=== PATIENT | female | born 1950 | race Caucasian/White ===

== ENCOUNTER 2016-12-12 23:44 | Inpatient (IN) ==
[2016-12-13] MEDS ORDERED: KETOROLAC 30 MG/1 ML VIAL IV STA (01:02)
[2016-12-13 01:08] LABS: Basophils % 0.2 % (0.0-0.8); Eosinophils # 0.3 10*3/uL (0.0-0.87); Eosinophils % 5.7 % (0.00-10.9); Hematocrit 43.8 VOL% (35.7-47.0); Hemoglobin 14.5 GM/DL (12.0-16.0); Immature Granulocytes % 0.3 %; Immature Granulocytes Absolute 0.02 #; Lymphocytes # 1.4 10*3/uL (1.4-4.0); Lymphocytes % 24.1 % (21.3-54.2); Mean Corpuscular HGB Conc 33.1 GM/DL (32-36); Mean Corpuscular Hemoglobin 29 PG (27-34); Mean Corpuscular Volume 88.1 FL (87-102); Monocytes # 0.6 10*3/uL (0.11-0.8); Monocytes % 10.7 % (1.7-12.7); Neutrophils # 3.4 10*3/uL (1.4-7.4); Platelet Count 158 T/CUMM (130-400); Red Blood Count 4.97 MC/CUMM (3.8-5.5); Red Cell Distribution Width 14.6 % (9.3-17.3); White Blood Count 5.8 T/CUMM (4-12)
[2016-12-13] MEDS ORDERED: KETOROLAC 30 MG/1 ML VIAL ONE (01:18)
--- NOTE | 2016-12-13 01:20 | Emergency Department Note ---
Arrival - Arrival Chief Complaint: Chest Pain Stated Complaint: chest pain sob ED Nursing Triage Note: patient c/o leg pain for 2 weeks, sharp left sided cp with nausea. has taken nitro x 3 with some relief. has had 2 heart caths within one month but unable to stent. see dr weathers, has f/u appt with dr stanford. Mode of Arrival: Wheelchair Time Seen by Provider: 12/13/16 00:26 - History of Present Illness HPI Narrative: This is a 66-year-old female with type 2 diabetes and diabetic peripheral neuropathy, coronary artery disease status post coronary artery bypass graft surgery and recent cardiac catheterization within the past few weeks where dosimetrist was unable to place a stent who has been discharged on medical management who presents with intermittent chest pain for which he took 3 nitroglycerin tablets today and which prompted her to come to the emergency department to be sure that she is not had a myocardial infarction. In addition she is complaining of pain in her feet from her diabetic peripheral neuropathy. There is no shortness of breath diaphoresis nausea or vomiting. Allergies/Adverse Reactions: Allergies Allergy/AdvReac Type Severity Reaction Status Date / Time codeine Allergy Severe ITCHING Verified 11/20/16 10:57 Iodinated Contrast Media - Allergy Severe ITCHING Verified 11/20/16 10:57 Oral and [Iodinated Contrast Media - IV Dye] morphine Allergy Severe ITCHING Verified 11/20/16 10:57 Home Medications: Home Medications Medication Instructions Recorded Confirmed Type ALPRAZolam [Alprazolam] 0.5 mg PO BID 06/20/15 12/12/16 History Atorvastatin [Lipitor] 40 mg PO DAILY 06/20/15 12/12/16 History Fluticasone 50 Mcg Nasal [place] 1 spray BOTH NARES DAILY PRN 06/20/15 12/12/16 History [Flonase Nasal [place]] Gabapentin 300 mg PO BID 06/20/15 12/12/16 History Insulin Lispro [HumaLOG] 12 units SUBCUT TID W/MEALS 06/20/15 12/12/16 History Insulin NPH Hum/Reg Insulin Hm 55 unit SUBCUT BID 06/20/15 12/12/16 History [NovoLIN 70/30] Ipratropium/Albuterol Inhaler 1 puff INH QID 06/20/15 12/12/16 History [Combivent Respimat Inhaler] Isosorbide Mononitrate [Imdur] 60 mg PO DAILY 06/20/15 12/12/16 History Albuterol/Ipratropium Neb [Duoneb] 3 ml RESP TX TID PRN 12/12/15 12/12/16 History Beclomethasone 80 Mcg Inhaler 80 mcg INH BID 12/12/15 12/12/16 History [Qvar 80 Mcg] Furosemide Tab [Lasix Tab] 40 mg PO BID DIURETIC 12/12/15 12/12/16 History Nitroglycerin Sl Tab [Nitrostat] 0.4 mg SL Q5M PRN 12/12/15 12/12/16 History Aspirin 325 mg PO DAILY 11/09/16 12/12/16 History Empagliflozin [Jardiance] 10 mg PO DAILY 11/09/16 12/12/16 History Famotidine 20 mg PO DAILY 11/09/16 12/12/16 History Magnesium Oxide 800 mg PO BID 11/09/16 12/12/16 History Atenolol 12.5 mg PO DAILY W/BREAKFAST #30 11/11/16 12/12/16 Rx tablet Clopidogrel [Plavix] 75 mg PO DAILY #30 tablet 11/11/16 12/12/16 Rx Loratadine Tab [Claritin Tab] 10 mg PO DAILY 11/11/16 12/12/16 History Ranolazine [Ranexa] 1,000 mg PO BID #60 tab.er.12h 11/20/16 12/12/16 Rx Review of System - Review of System Constitutional: Absent: fever, night sweats Eyes: Absent: redness, vision change Head/Ears/Nose/Throat: Absent: epistaxis, nasal drainage Respiratory: Absent: respiratory distress, wheezing Cardiovascular: Present: chest pain. Absent: dyspnea on exertion, orthopnea Gastrointestinal: Absent: diarrhea, constipation Genitourinary female: Absent: dyspareunia, frequency Musculoskeletal: Absent: joint swelling, lower back pain Skin: Absent: change in color, change in hair/nails Neurological: Absent: numbness, paresthesias Psychiatric: Absent: suicidal thoughts, homicidal thoughts Endocrine: Absent: heat intolerance, polydipsia Hematological/Lymphatic: Absent: easy bruising, lymphadenopathy Allergic/Immunologic: Absent: urticaria, itchy eyes Medical,Surgical,& Family Hx - Medical History Cardio: History of: CHF, CAD, Hypertension Psychological: History of: Anxiety Disorders, Depression Neurology: History of: Cerebrovascular Accident (1998), Peripheral Neuropathy No history of: Seizures HEENT: History of: HEENT Problems (seasonal allergies) Endocrine: History of: Diabetes Mellitus (IDDM), Dyslipidemia Respiratory: History of: Asthma, Bronchitis, COPD, Obstructive Sleep Apnea ( Wears C-pap sometimes), Pneumonia Genitourinary: History of: Kidney Stones, Recurring Urinary Tract Infections Gastrointestinal: History of: GERD, Hemorrhoids, Polyps, GI Problems (Dysphagia) Musculoskeletal: History of: Back/Neck Problems, Herniated Disk, Musculoskeletal Problems (osteoarthritis) Hematology: History of: Anemia Other: History of: Skin Problems (recurrent cellulitis lower extremities), Miscellaneous Medical Problems (Staph after bypass surgery) - Surgical History Cardiac Surgeries: Sugical HX of: Cardiac Catheterization (November 2016), Cardiac Surgery (CABG), Carotid Endarterectomy HEENT Surgeries: Surgical HX of: Carotid Endarterectomy, Eye Surgery (Cataract removal bilaterally) Abdominal Surgeries: Surgical HX of: Abdominal Surgery, Appendectomy, Cholecystectomy, Colonoscopy, EGD Reproductive Surgeries: Surgical HX of;: Breast Surgery (LEFT breast biopsy), Gynecologic Surgery, Hysterectomy Patient denies;: Genitourinary Surgery - Family History Family History: Reports;: Family Diabetes (G'mother, Aunt, Brother), Family Heart Disease (Father), Family Hypertension (Brother) - Social History Smoking Status: Former smoker Frequency of Alcohol Use: None Type of Drug Use: None Exam Vital Signs: Vital Signs Temperature 97.3 F L 12/12/16 23:48 Pulse Rate 85 12/12/16 23:48 Respiratory Rate 20 12/12/16 23:48 Blood Pressure 137/80 12/12/16 23:48 O2 Sat by Pulse Oximetry 93 L 12/12/16 23:48 - General Exam limited due to: ALOC - Head Head exam: Present: atraumatic, normocephalic - Eye Eye exam: Present: normal appearance, PERRL - ENT ENT exam: Present: normal exam, normal oropharynx - Neck Neck exam: Present: normal inspection, full ROM - Chest Chest inspection: Present: normal inspection, symmetric chest wall rise - Respiratory Respiratory exam: Present: normal lung sounds bilaterally - Cardiovascular Cardiovascular exam: Present: regular rate, normal rhythm - Abdominal Exam Abdominal exam: Present: soft, distention - Extremities Exam Extremities exam: Present: normal inspection, full ROM - Back Exam Back exam: Present: normal inspection, full ROM - Neurological Exam Neurological exam: Present: alert, oriented X3 - Psychiatric Psychiatric exam: Present: normal affect, normal mood - Skin Skin exam: Present: warm, dry
[2016-12-13 01:24] LABS: Albumin 3.7 G/DL (3.4-5.0); Bilirubin,Total 0.5 MG/DL (0.2-1.0); Calcium 8.9 MG/DL (8.5-10.1); Osmolality,Calculated 287.1 MOS/KG (273-304); Potassium 3.2 MMOL/L (3.5-5.1); Troponin I Only 0.057 NG/ML (0.00-0.045)
[2016-12-13] MEDS ORDERED: MEPERIDINE 25 MG/1 ML VIAL IV STA (02:17)
[2016-12-13] MEDS ORDERED: ONDANSETRON 4 MG/2 ML VIAL IV STA (02:18)
[2016-12-13] MEDS ORDERED: ONDANSETRON 4 MG/2 ML VIAL ONE (02:20)
[2016-12-13] MEDS ORDERED: MEPERIDINE 25 MG/1 ML VIAL ONE (02:21)
[2016-12-13] MEDS ORDERED: ONDANSETRON 4 MG/2 ML VIAL IV PRN (02:50)
[2016-12-13] MEDS ORDERED: ACETAMINOPHEN 325 MG TABLET PO PRN (02:50)
[2016-12-13] MEDS ORDERED: ALBUTEROL/IPRATROPIUM 3 ML NEB RESP TX PRN (02:58)
[2016-12-13] MEDS ORDERED: FLUTICASONE 50 MCG NASAL SPRAY 16 GM BOTTLE BOTH NARES PRN (02:58)
[2016-12-13] MEDS ORDERED: DEXTROSE 50% 25 GM/50 ML VIAL IV PRN (03:01)
[2016-12-13] MEDS ORDERED: GLUCAGON 1 MG VIAL IM PRN (03:01)
--- NOTE | 2016-12-13 03:09 | Hospitalist History & Physical ---
Assessment and Plan (1) NSTEMI (non-ST elevated myocardial infarction) Status: Acute Assessment and plan: No recent troponin level and system so baseline troponin level not known. She has a mild elevated troponin level this could be due to and NSTEMI outpatient might just have on history of angina. Will continue her home medication and start on Lovenox therapeutic dose. Consult cardiology. I will get a repeat cardiac enzymes including troponin level to follow the trend Current Visit: Yes (2) Hypertension Status: Chronic Assessment and plan: Blood pressure control Current Visit: Yes (3) Diabetes mellitus Status: Chronic Assessment and plan: Due to her severe coronary disease I will try to avoid strict control of diabetes. For now I will continue her NPH and regular insulin combination which she uses at baseline. I will use short-acting insulin as needed basis to avoid hypoglycemia Current Visit: Yes (4) COPD (chronic obstructive pulmonary disease) Status: Chronic Assessment and plan: No exacerbation continue home medications Current Visit: Yes History of Present Illness Chief complaint: Chest pain History of present illness: Ms. Melara is a 66 year old female history of for hypertension coronary artery disease CHF COPD and sleep apnea. She came to the ER with history of chest pain. Patient states she has chest pain almost every day but her last night she had to take 3 nitroglycerin for chest pain on and off left side of the chest with the sometimes radiation to arm. Some associated diaphoresis but no nausea vomiting. No pain right now but she had to take 3 nitroglycerin prompted her to come to the hospital for evaluation. She has history of coronary artery disease and on medical therapy. Due to anginal-like symptoms she had 2 cardiac cath in the last 1 month and noted to have severe two-vessel diffuse disease disease involving left circumflex and left main artery but failed attempted of PCI to left circumflex coronary artery. In addition to a symptom patient also has bilateral feet pain due to neuropathy. She has some shortness of breath also with chest pain otherwise no cough fever or urinary symptoms reported. She had a EKG which showed sinus rhythm with right bundle branch block. She had a troponin of 0.057 BUN 20 creatinine 1.4. I was asked to admit the patient Home Medications Medication Instructions Recorded Confirmed Type ALPRAZolam [Alprazolam] 0.5 mg PO BID 06/20/15 12/12/16 History Atorvastatin [Lipitor] 40 mg PO DAILY 06/20/15 12/12/16 History Fluticasone 50 Mcg Nasal [place] 1 spray BOTH NARES DAILY PRN 06/20/15 12/12/16 History [Flonase Nasal [place]] Gabapentin 300 mg PO BID 06/20/15 12/12/16 History Insulin Lispro [HumaLOG] 12 units SUBCUT TID W/MEALS 06/20/15 12/12/16 History Insulin NPH Hum/Reg Insulin Hm 55 unit SUBCUT BID 06/20/15 12/12/16 History [NovoLIN 70/30] Ipratropium/Albuterol Inhaler 1 puff INH QID 06/20/15 12/12/16 History [Combivent Respimat Inhaler] Isosorbide Mononitrate [Imdur] 60 mg PO DAILY 06/20/15 12/12/16 History Albuterol/Ipratropium Neb [Duoneb] 3 ml RESP TX TID PRN 12/12/15 12/12/16 History Beclomethasone 80 Mcg Inhaler 80 mcg INH BID 12/12/15 12/12/16 History [Qvar 80 Mcg] Furosemide Tab [Lasix Tab] 40 mg PO BID DIURETIC 12/12/15 12/12/16 History Nitroglycerin Sl Tab [Nitrostat] 0.4 mg SL Q5M PRN 12/12/15 12/12/16 History Aspirin 325 mg PO DAILY 11/09/16 12/12/16 History Empagliflozin [Jardiance] 10 mg PO DAILY 11/09/16 12/12/16 History Famotidine 20 mg PO DAILY 11/09/16 12/12/16 History Magnesium Oxide 800 mg PO BID 11/09/16 12/12/16 History Atenolol 12.5 mg PO DAILY W/BREAKFAST #30 11/11/16 12/12/16 Rx tablet Clopidogrel [Plavix] 75 mg PO DAILY #30 tablet 11/11/16 12/12/16 Rx Loratadine Tab [Claritin Tab] 10 mg PO DAILY 11/11/16 12/12/16 History Ranolazine [Ranexa] 1,000 mg PO BID #60 tab.er.12h 11/20/16 12/12/16 Rx Allergies Allergy/AdvReac Type Severity Reaction Status Date / Time codeine Allergy Severe ITCHING Verified 11/20/16 10:57 Iodinated Contrast Media - Allergy Severe ITCHING Verified 11/20/16 10:57 Oral and [Iodinated Contrast Media - IV Dye] morphine Allergy Severe ITCHING Verified 11/20/16 10:57 Medical,Surgical,& Family Hx - Medical History Cardio: History of: CHF, CAD, Hypertension Psychological: History of: Anxiety Disorders, Depression Neurology: History of: Cerebrovascular Accident (1998), Peripheral Neuropathy No history of: Seizures HEENT: History of: HEENT Problems (seasonal allergies) Endocrine: History of: Diabetes Mellitus (IDDM), Dyslipidemia Respiratory: History of: Asthma, Bronchitis, COPD, Obstructive Sleep Apnea ( Wears C-pap sometimes), Pneumonia Genitourinary: History of: Kidney Stones, Recurring Urinary Tract Infections Gastrointestinal: History of: GERD, Hemorrhoids, Polyps, GI Problems (Dysphagia) Musculoskeletal: History of: Back/Neck Problems, Herniated Disk, Musculoskeletal Problems (osteoarthritis) Hematology: History of: Anemia Other: History of: Skin Problems (recurrent cellulitis lower extremities), Miscellaneous Medical Problems (Staph after bypass surgery) - Surgical History Cardiac Surgeries: Sugical HX of: Cardiac Catheterization (November 2016), Cardiac Surgery (CABG), Carotid Endarterectomy HEENT Surgeries: Surgical HX of: Carotid Endarterectomy, Eye Surgery (Cataract removal bilaterally) Abdominal Surgeries: Surgical HX of: Abdominal Surgery, Appendectomy, Cholecystectomy, Colonoscopy, EGD Reproductive Surgeries: Surgical HX of;: Breast Surgery (LEFT breast biopsy), Gynecologic Surgery, Hysterectomy Patient denies;: Genitourinary Surgery - Family History Family History: Reports;: Family Diabetes (G'mother, Aunt, Brother), Family Heart Disease (Father), Family Hypertension (Brother) - Social History Smoking Status: Former smoker Frequency of Alcohol Use: None Type of Drug Use: None 12 point system: reviewed and no additional remarkable complaints except as stated (Mentioned in HPI) Exam - Constitutional Vitals: Period Temp Pulse Resp BP Sys/[place] Pulse Ox Last 24 Hr 97.3 F-97.3 F 82-85 20-28 130-137/48-80 93-93 General appearance: no acute distress, morbidly obese - Head Head exam: Present: normal inspection, normocephalic, atraumatic - Eye Eye exam: Present: EOMI. Absent: conjunctival injection Pupils: Present: SKYLER, normal accommodation - ENT ENT exam: Present: normal exam, normal oropharynx - Neck Neck exam: Present: other (Supple) - Respiratory Respiratory exam: Present: clear to auscultation bilaterally. Absent: rales, rhonchi, stridor - Cardiovascular Cardiovascular exam: Present: regular rate and rhythm. Absent: JVD, tachycardia - GI/Abdominal GI/Abdominal exam: Present: normal bowel sounds, soft. Absent: distended, tenderness - Extremities Exam Extremities exam: Present: edema (Bilateral 1+ edema of lower extremities. There is some redness especially left leg without any elevated temperature or tenderness likely from chronic venous insufficiency) - Neurological Exam Neurological exam: Present: alert, oriented X3 - Psychiatric Psychiatric exam: Present: normal affect, normal mood - Skin Skin exam: Present: normal color Results - Labs CBC & BMP: 12/13/16 00:21 12/13/16 00:21 Lab Results: I have reviewed the past 24 hour labs Quality Measures - VTE Contraindication to Pharmacological VTE Prophylaxis: Already on Theraputic Agent , No Prophylaxis Needed
[2016-12-13] MEDS: POTASSIUM CHLORIDE 20 MEQ TABLET PO PRN ×2 (05:07→09:40)
[2016-12-13] MEDS: ENOXAPARIN 100 MG/ML SYRINGE SUBCUT SCH ×2 (05:08→17:13)
[2016-12-13] MEDS ORDERED: INSULIN NPH/REGULAR 70/30 100 UNIT/ML SUBCUT SCH (07:30)
[2016-12-13] MEDS: ALBUTEROL/IPRATROPIUM 3 ML NEB RESP TX SCH ×4 (07:33→19:03)
--- NOTE | 2016-12-13 08:17 | EKG Report ---
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
[2016-12-13 08:18] LABS: CKMB % 3.4 %
[2016-12-13 08:19] LABS: Troponin I Only 0.285 NG/ML (0.00-0.045)
[2016-12-13] MEDS ORDERED: ISOSORBIDE MONONITRATE 60 MG TABLET PO SCH (09:00)
[2016-12-13] MEDS: ASPIRIN 325 MG TABLET PO SCH (09:40)
[2016-12-13] MEDS: ATENOLOL 25 MG TABLET PO SCH (09:40)
[2016-12-13] MEDS: FUROSEMIDE 40 MG TABLET PO SCH ×2 (09:40→17:13)
[2016-12-13] MEDS: ALPRAZolam 0.5 MG TABLET PO SCH ×2 (09:41→20:49)
[2016-12-13] MEDS: LORATADINE 10 MG TABLET PO SCH (09:41)
[2016-12-13] MEDS: PANTOPRAZOLE 40 MG TABLET PO SCH (09:42)
[2016-12-13] MEDS: DOCUSATE SODIUM 100 MG CAPSULE PO SCH ×2 (09:42→20:49)
[2016-12-13] MEDS: ATORVASTATIN 40 MG TABLET PO SCH (09:43)
[2016-12-13] MEDS: CLOPIDOGREL 75 MG TABLET PO SCH (09:43)
[2016-12-13] MEDS: GABAPENTIN 300 MG CAPSULE PO SCH ×2 (09:44→20:50)
[2016-12-13] MEDS: MAGNESIUM OXIDE 400 MG TABLET PO SCH ×2 (09:44→20:49)
[2016-12-13] MEDS: RANOLAZINE 500 MG TABLET PO SCH ×2 (09:44→20:49)
[2016-12-13] MEDS: BECLOMETHASONE 80 MCG/PUFF INHALER 8.7 GM INH SCH ×2 (09:46→20:50)
[2016-12-13] MEDS ORDERED: POTASSIUM CHLORIDE 20 MEQ TABLET PO ONE (11:32)
--- NOTE | 2016-12-13 11:33 | Hospitalist Progress Note ---
Assessment and Plan (1) NSTEMI (non-ST elevated myocardial infarction) Status: Acute Assessment and plan: serial troponins positive, abnormal ekg, Recent heart cath on 11/11/16, Cardiology consulted Current Visit: Yes (2) Acute exacerbation of chronic obstructive pulmonary disease (COPD) Status: Acute Assessment and plan: duonebs and steroids Current Visit: No (3) Type II diabetes mellitus Status: Chronic Assessment and plan: a1c 8.2, increase 70/30 to 65 Units bid Current Visit: No Qualifiers: Diabetes mellitus complication status: with skin complications Diabetes mellitus complication detail: with dermatitis Qualified Code(s): E11.620 - Type 2 diabetes mellitus with diabetic dermatitis (4) Obstructive sleep apnea Status: Chronic Assessment and plan: cpap at night Current Visit: No (5) Hypertension Status: Chronic Assessment and plan: cont atenolol, isosorbide Current Visit: Yes Hospitalist: Subjective Interval history: Patient has a lot of miscellaneous complaints today. She reports no chest pain today but she is still extremely short of breath. She is morbidly obese I asked her if she was ever told she had sleep apnea and she said yes and she has a CPAP machine. She will ask her family to bring it in. She does complain of some swelling in her right foot and a lot of peripheral pain most likely due to neuropathy. Will check her for gout however. She no longer smokes but she is very short of breath and very diminished. Her troponins were trending up I ordered another one for this morning and is trending down now. Exam - Constitutional Vitals: Period Temp Pulse Resp BP Sys/[place] Pulse Ox Last 24 Hr 97.3 F-99.2 F 81-99 16-28 107-137/48-80 88-97 Exam: Heart Rate-[RRR] Lungs-[very diminished, tight few wheezes] GI-[+bs soft, NT, obese] Ext-[1+ edema] Neuro [Motor 5/5], [alert and oriented times 3] psych [normal mood and affect] General [mild acute distress] Results - Labs CBC & BMP: 12/13/16 00:21 12/13/16 00:21 Lab Results: I have reviewed the past 24 hour labs Labs: Serial troponins positive Quality Measures - VTE Contraindication to Pharmacological VTE Prophylaxis: Already on Theraputic Agent , No Prophylaxis Needed
[2016-12-13] MEDS: INSULIN NPH/REGULAR 70/30 100 UNIT/ML SUBCUT SCH ×2 (12:02→17:13)
[2016-12-13] MEDS: methylPREDNISolone SOD SUC 40 MG/1 ML VIAL IV SCH ×2 (12:23→20:49)
--- NOTE | 2016-12-13 12:38 | XRay Report ---
History: Shortness of breath Date: 12/13/2016 Study: Chest x-ray AP portable Comparison exam: November 11, 2016 There is continued cardiomegaly. The pulmonary vasculature is slightly prominent. The mediastinal contour is unchanged in this patient status post prior median sternotomy. There is stable platelike scarring in the left midlung. There is some mild platelike subsegmental atelectasis which has developed in the right mid to lower lung since the previous study. There are some underlying emphysematous changes. There is no gross pleural effusion. Osseous structures are similar. Impression: Cardiomegaly and evidence of early congestive heart failure. Developing mild subsegmental atelectasis right mid to lower lung. Chronic scarring left midlung PROCEDURE INTERPRETED AT [facility] DEPARTMENT OF RADIOLOGY Final Report Signed by: Dr. Melissa Connor
--- NOTE | 2016-12-13 16:42 | Cardiology Consult Note ---
Assessment and Plan (1) NSTEMI (non-ST elevated myocardial infarction) Status: Acute Current Visit: Yes (2) COPD (chronic obstructive pulmonary disease) Status: Chronic Current Visit: Yes (3) Diabetes mellitus Status: Chronic Current Visit: Yes (4) Hypertension Status: Chronic Current Visit: Yes (5) Overweight Status: Chronic Current Visit: No (6) COPD (chronic obstructive pulmonary disease) Status: Chronic Current Visit: No Qualifiers: COPD type: unspecified COPD Qualified Code(s): J44.9 - Chronic obstructive pulmonary disease, unspecified (7) Cellulitis of both lower extremities Problem details: acute on chronic Status: Acute Current Visit: No (8) Obstructive sleep apnea Status: Chronic Current Visit: No History of Present Illness - Data of Consult Patient: known to practice within the last 3 years Consult date: 12/13/16 Requesting Physician: Yaneth Escobar - Consult Narrative Reason for consult: CAD, [place] History of present illness: I have reviewed several recent cardiac catheterization films of this patient, as well as her chart. Data collection and discussion with the patient took greater than 30 minutes. Edi Consultant: Dr. Abarca. Dr. Holloway has recently attempted PCI. The patient is a 66-year-old white female with coronary artery disease, hypertension, hyperlipidemia, diabetes mellitus. She is status post CABG in the with KIRKPATRICK to LAD, saphenous vein graft to RCA, and additional saphenous vein graft. She recently underwent cardiac catheterization in early November with Dr. Abarca. She was found to have a patent K[place] to LAD, chronic [place] right coronary artery disease with a saphenous vein graft to the right coronary artery that was diffusely diseased but patent, as well as some [place] circumflex disease it was most severe in the distal circumflex and a trifurcation point. Medical therapy was optimized, and the patient continued to have anginal symptoms. More recently, she underwent repeat catheterization with a failed attempted PCI to the circumflex artery by Dr. Holloway in late November. He was unable to wire the extent of the circumflex to proceed with intervention. She has been continued on medical therapy. She continues to experience chest discomfort with mild to moderate exertion, and these include activities of daily living such as ambulating throughout her home. In her chronic state, she experiences her anginal symptoms about every other day, and the usually respond to rest. She reports good medication compliance and we went over all of her medications to confirm that she is taking those listed. Yesterday she had 3 episodes of more severe chest pain that did not entirely respond to nitroglycerin so she came to the emergency room for further evaluation and treatment. Additionally, she has newer onset of bilateral lower extremity swelling and pain in both of her feet as well as her toes that are interfering with her ability to ambulate. Her chest pain episodes were actually precipitated by her toe pain episodes. She has chronic stable dyspnea on exertion but overall is unchanged. She does not really have orthopnea. She has had a preserved LV systolic function on recent catheterizations. She is not having fevers or chills. She denies any nausea, vomiting, diarrhea, melena, bright red blood per rectum. She has lost approximately 50 pounds in the last 1 year without great intention, but she believes she has been eating less and has had less of an appetite. She has not undergone cardiac rehabilitation in a number of years. She was previously followed by Dr. Ramos. Impression and plan: 1. Crescendo angina-she has chronic severe two-vessel coronary artery disease that has failed medical therapy. She is on an appropriate regimen. There has also been a failed attempt at percutaneous intervention of the circumflex artery by a reasonably aggressive and skilled dielectric testing machine operator. She has a history of CABG in the s which was followed by a complicated postoperative course the required tracheostomy. Some consideration has been made to intervention to the saphenous vein graft to the right coronary artery. I have reviewed her last 2 films carefully. She has a robust, patent [place] to the LAD and this territory appears to be well vascularized. Additionally, the LAD gives rise to some right coronary artery collateralization. The [place] right coronary artery itself is a puny vessel. The vein graft to this vessel is diffusely diseased, and in my opinion, even if it were to be revascularized I do not believe it would have a long-term patency rate given the small nature of the [place] right coronary artery. Again, there is some collateralization from the [place] to LAD which also makes the case for medical therapy. The circumflex artery is a complex territory, with distal trifurcation disease, and each of these vessels are themselves very small vessels. She tells me that she has been referred to Dr. Morillo for evaluation of a redo CABG surgery. We certainly can consult him and get his expert opinion. My opinion, which I have offered to her, is that we continue with medical therapy, refer her for cardiac rehabilitation to try to increase her collateral supply, and also refer her to the [facility] to try to continue with her weight loss. While this approach is only a long-term strategy, I believe she is at very high risk for a redo bypass surgery, and that there is very little benefit to be gained. But again, will get the opinion of Dr. Morillo. In the meanwhile I will increase her Imdur. We can also readdress the case with Dr. Holloway. She will have an additional classer tomorrow reviewing her case which will offer a second opinion as well. 2. Bilateral lower extremity edema-she has had a preserved systolic function, and her BNP is low, so I do not believe this represents heart failure. It is likely related to the cellulitis in her lower extremities. She does have some decreased pulses in this area as well. I am going to check bilateral lower extremity venous Dopplers as well as bilateral ABIs. Her cellulitis will be treated by the hospitalist service. She can be diuresed, and she will elevate her legs. 3. Coronary artery disease-as above. 4. Hypertension-chronic, stable. 5. Diabetes mellitus-chronic, stable. CC: Luanne Gottlieb, DO - Home Medications and Allergies Home Medications: Home Medications Medication Instructions Recorded Confirmed Type ALPRAZolam [Alprazolam] 0.5 mg PO BID 06/20/15 12/13/16 History Atorvastatin [Lipitor] 40 mg PO DAILY 06/20/15 12/13/16 History Fluticasone 50 Mcg Nasal [place] 1 spray BOTH NARES DAILY PRN 06/20/15 12/13/16 History [Flonase Nasal [place]] Gabapentin 300 mg PO BID 06/20/15 12/13/16 History Insulin Lispro [HumaLOG] 12 units SUBCUT TID W/MEALS 06/20/15 12/13/16 History Ipratropium/Albuterol Inhaler 1 puff INH QID 06/20/15 12/13/16 History [Combivent Respimat Inhaler] Isosorbide Mononitrate [Imdur] 60 mg PO DAILY 06/20/15 12/13/16 History Albuterol/Ipratropium Neb [Duoneb] 3 ml RESP TX TID PRN 12/12/15 12/13/16 History Beclomethasone 80 Mcg Inhaler 80 mcg INH BID 12/12/15 12/13/16 History [Qvar 80 Mcg] Furosemide Tab [Lasix Tab] 40 mg PO BID DIURETIC 12/12/15 12/13/16 History Nitroglycerin Sl Tab [Nitrostat] 0.4 mg SL Q5M PRN 12/12/15 12/13/16 History Aspirin 325 mg PO DAILY 11/09/16 12/13/16 History Empagliflozin [Jardiance] 10 mg PO DAILY 11/09/16 12/13/16 History Famotidine 20 mg PO DAILY 11/09/16 12/13/16 History Magnesium Oxide 800 mg PO BID 11/09/16 12/13/16 History Atenolol 12.5 mg PO DAILY W/BREAKFAST #30 11/11/16 12/13/16 Rx tablet Clopidogrel [Plavix] 75 mg PO DAILY #30 tablet 11/11/16 12/13/16 Rx Loratadine Tab [Claritin Tab] 10 mg PO DAILY 11/11/16 12/13/16 History Insulin NPH/Regular 70/30 [HumuLIN 55 unit SUBCUT BID 12/13/16 12/13/16 History 70/30] Nitroglycerin Sl Tab [Nitrostat] 0.4 mg SL DAILY 12/13/16 12/13/16 History Ranolazine [Ranexa] 500 mg PO BID 12/13/16 12/13/16 History amLODIPine [Norvasc] 5 mg PO DAILY 12/13/16 12/13/16 History Allergies/Adverse Reactions: Allergies Allergy/AdvReac Type Severity Reaction Status Date / Time codeine Allergy Severe ITCHING Verified 11/20/16 10:57 Iodinated Contrast Media - Allergy Severe ITCHING Verified 11/20/16 10:57 Oral and [Iodinated Contrast Media - IV Dye] morphine Allergy Severe ITCHING Verified 11/20/16 10:57 12 point system: reviewed and no additional remarkable complaints except as stated Medical,Surgical,& Family Hx - Medical History Cardio: History of: CHF, CAD, Hypertension Psychological: History of: Anxiety Disorders, Depression Neurology: History of: Cerebrovascular Accident (1998), Peripheral Neuropathy No history of: Seizures HEENT: History of: HEENT Problems (seasonal allergies) Endocrine: History of: Diabetes Mellitus (IDDM), Dyslipidemia Respiratory: History of: Asthma, Bronchitis, COPD, Obstructive Sleep Apnea ( Wears C-pap sometimes), Pneumonia Genitourinary: History of: Kidney Stones, Recurring Urinary Tract Infections Gastrointestinal: History of: GERD, Hemorrhoids, Polyps, GI Problems (Dysphagia) Musculoskeletal: History of: Back/Neck Problems, Herniated Disk, Musculoskeletal Problems (osteoarthritis) Hematology: History of: Anemia Other: History of: Skin Problems (recurrent cellulitis lower extremities), Miscellaneous Medical Problems (Staph after bypass surgery) - Surgical History Cardiac Surgeries: Sugical HX of: Cardiac Catheterization (November 2016), Cardiac Surgery (CABG), Carotid Endarterectomy HEENT Surgeries: Surgical HX of: Carotid Endarterectomy, Eye Surgery (Cataract removal bilaterally) Abdominal Surgeries: Surgical HX of: Abdominal Surgery, Appendectomy, Cholecystectomy, Colonoscopy, EGD Reproductive Surgeries: Surgical HX of;: Breast Surgery (LEFT breast biopsy), Gynecologic Surgery, Hysterectomy Patient denies;: Genitourinary Surgery - Family History Family History: Reports;: Family Diabetes (G'mother, Aunt, Brother), Family Heart Disease (Father), Family Hypertension (Brother) - Social History Smoking Status: Former smoker Frequency of Alcohol Use: None Type of Drug Use: None Functional capacity: independent ambulation Physical Examination Vital Signs Temp Pulse Resp BP Pulse Ox 97.3 F L 85 20 137/80 93 L 12/12/16 23:48 12/12/16 23:48 12/12/16 23:48 12/12/16 23:48 12/12/16 23:48 Exam: General appearance: Obese, no acute distress - Head Head exam: Present: normal inspection, normocephalic, atraumatic. Absent: hematoma, laceration - Eye Eye exam: Present: EOMI. Absent: conjunctival injection, nystagmus, periorbital swelling, scleral icterus, laceration to eyelids Pupils: Present: SKYLER. Absent: constricted, dilated, fixed, irregular, unequal - ENT ENT exam: Present: normal exam, normal external ear exam - Neck Neck exam: Present: Exam limited by habitus, overall normal inspection. Absent : lymphadenopathy, meningismus, tenderness, thyromegaly - Respiratory Respiratory exam: Present: Exam limited by habitus, overall clear to auscultation bilaterally. Absent: accessory muscle use, chest wall tenderness - Cardiovascular Cardiovascular exam: Present: Exam limited by habitus, tones in general distant but overall regular rate and rhythm. Absent: carotid bruit, gallop, JVD, rubs - GI/Abdominal GI/Abdominal exam: Present: Exam limited by habitus, overall normal bowel sounds. Absent: distended, firm, guarding, hernia, mass, tenderness, rebound, soft - Extremities Exam Extremities exam: Present: Decreased bilateral pulses, 2+ bilateral lower extremity edema with surrounding erythema, calor, tenderness. - Back Exam Back exam: Present: normal inspection. Absent: muscle spasm, vertebral tenderness - Neurological Exam Neurological exam: Present: alert, oriented X3, grossly intact without resting or intention tremor - Psychiatric Psychiatric exam: Present: normal affect, tearful - Skin Skin exam: Present: Bilateral lower extremities are erythematous and warm, left greater than right. Result/EKG - Labs CBC & BMP: 12/13/16 00:21 12/13/16 00:21 Lab Results: I have reviewed the past 24 hour labs Labs: Laboratory Results - last 24 hr 12/13/16 12/13/16 12/13/16 00:21 00:21 07:04 WBC 5.8 RBC 4.97 Hgb 14.5 Hct 43.8 MCV 88.1 MCH 29 MCHC 33.1 RDW 14.6 Plt Count 158 MPV 11.0 Neut % (Auto) 59.0 Lymph % (Auto) 24.1 [place] % (Auto) 10.7 Eos % (Auto) 5.7 Baso % (Auto) 0.2 Neut # (Auto) 3.4 Lymph # (Auto) 1.4 [place] # (Auto) 0.6 Eos # (Auto) 0.3 Baso # (Auto) 0.0 Immature Gran % 0.3 Nucleated RBC % 0.0 Immature Gran # 0.02 Nucleated RBCs # 0.00 Immature Plt Fraction 0.0 Sodium 142 Potassium 3.2 L Chloride 103 Carbon Dioxide 33 H Anion Gap 9.2 BUN 26 H Creatinine 1.40 H GFR Calculation 47 BUN/Creatinine Ratio 18.00 Glucose 102 POC Glucose Calculated Osmolality 287.1 Uric Acid Calcium 8.9 Total Bilirubin 0.50 AST 20 ALT 28 Alkaline Phosphatase 114 Total Creatine Kinase 170 CK-MB (CK-2) 5.8 H CK and CKMB Interp 3.4 Troponin I 0.057 H 0.285 H D B-Natriuretic Peptide Total Protein 7.0 Albumin 3.7 Globulin 3.3 Albumin/Globulin Ratio 1.1 12/13/16 12/13/16 12/13/16 07:04 09:39 09:46 WBC RBC Hgb Hct MCV MCH MCHC RDW Plt Count MPV Neut % (Auto) Lymph % (Auto) [place] % (Auto) Eos % (Auto) Baso % (Auto) Neut # (Auto) Lymph # (Auto) [place] # (Auto) Eos # (Auto) Baso # (Auto) Immature Gran % Nucleated RBC % Immature Gran # Nucleated RBCs # Immature Plt Fraction Sodium Potassium Chloride Carbon Dioxide Anion Gap BUN Creatinine GFR Calculation BUN/Creatinine Ratio Glucose POC Glucose 199 H Calculated Osmolality Uric Acid 8.1 H Calcium Total Bilirubin AST ALT Alkaline Phosphatase Total Creatine Kinase CK-MB (CK-2) CK and CKMB Interp Troponin I B-Natriuretic Peptide 42 Total Protein Albumin Globulin Albumin/Globulin Ratio 12/13/16 12/13/16 09:49 12:19 WBC RBC Hgb Hct MCV MCH MCHC RDW Plt Count MPV Neut % (Auto) Lymph % (Auto) [place] % (Auto) Eos % (Auto) Baso % (Auto) Neut # (Auto) Lymph # (Auto) [place] # (Auto) Eos # (Auto) Baso # (Auto) Immature Gran % Nucleated RBC % Immature Gran # Nucleated RBCs # Immature Plt Fraction Sodium Potassium Chloride Carbon Dioxide Anion Gap BUN Creatinine GFR Calculation BUN/Creatinine Ratio Glucose POC Glucose 216 H Calculated Osmolality Uric Acid Calcium Total Bilirubin AST ALT Alkaline Phosphatase Total Creatine Kinase CK-MB (CK-2) CK and CKMB Interp Troponin I 0.235 H B-Natriuretic Peptide Total Protein Albumin Globulin Albumin/Globulin Ratio - Diagnostic Findings Procedure: Chest x-ray: report reviewed by sd Quality Measures - VTE Contraindication to Pharmacological VTE Prophylaxis: Already on Theraputic Agent , No Prophylaxis Needed
--- NOTE | 2016-12-13 18:30 | ECHO Report ---
Tomasa Melara 12/13/2016 Exam Date: 13:34 Referring Physician: Clari Haro Technologist: TAMIKO Age: 66 Ht (in): 61 Wt (lb): 251 FExam Location: [facility] Gender: Echo [id number]: SOB, COPD, diabetes, HTN, anginia, Indications: BP: 123 / 72 HR: 98 SinusRhythm: Technically difficult studyTechnical Quality: IMPRESSIONS Normal LV systolic function, EF 60%. Grade I/IV diastolic dysfunction. Trace mitral and tricuspid regurgitation. MEASUREMENTS (Male / Female) Normal Values 2D ECHO LV Diastolic Diameter PLAX 5.0 cm 4.2 - 5.9 / 3.9 - 5.3 cm LV Systolic Diameter PLAX 2.1 cm LV Fractional Shortening PLAX 59.0 % IVS Diastolic Thickness 1.0 cm 0.6 - 1.0 / 0.6 - 0.9 cm LVPW Diastolic Thickness 1.2 cm 0.6 - 1.0 / 0.6 - 0.9 cm Aortic Root Diameter 2.2 cm LA Systolic Diameter LX 3.7 cm 3.0 - 4.0 / 2.7 - 3.8 cm DOPPLER TR Peak Velocity 258.0 cm/s TR Peak Gradient 26.6 mmHg FINDINGS Left Ventricle Normal left ventricular cavity size. Mild concentric left ventricular hypertrophy with diastolic dysfunction. Left ventricular ejection fraction is estimated at 55-60 %. Right Ventricle Normal right ventricular size. Right Atrium Normal right atrial size. Left Atrium Normal size. Mitral Valve Mildly thickened mitral valve. Trace mitral valve regurgitation. Aortic Valve Mild aortic valve sclerosis without stenosis or regurgitation. Tricuspid Valve Morphologically normal tricuspid valve. Trace tricuspid valve regurgitation. Tricuspid regurgitation velocities suggest a PAP of 26.6 mmHg + RAP. Pulmonic Valve Pulmonic valve not well visualized. Pericardium No pericardial effusion. Aorta Normal size aortic root and proximal ascending aorta. Aarti Bonilla MD (Electronically Signed) 13 December 2016 Final Date: 18:30
--- NOTE | 2016-12-13 20:05 | Ultrasound Report ---
History: Lower extremity edema Date: 12/13/2016 Study: Bilateral lower extremity color-flow venous Doppler study Comparison exam: January 22, 2014 Color Doppler, wave form analysis, and compression analysis of the deep veins of both lower extremities from the common femoral vein level through the popliteal vein level shows that the veins are readily compressible. There is no abnormal intraluminal material to suggest thrombus. Waveform analysis is unremarkable. Ultrasound images were captured and archived. Incidental note is made of an 18 x 16 x 17 mm Branch cyst in the right popliteal fossa. Impression: No evidence of acute DVT. There is a Branch's cyst in the right popliteal fossa PROCEDURE INTERPRETED AT [facility] DEPARTMENT OF RADIOLOGY Final Report Signed by: Dr. Melissa Connor
[2016-12-14] MEDS: ENOXAPARIN 100 MG/ML SYRINGE SUBCUT SCH ×2 (04:01→16:11)
[2016-12-14] MEDS: methylPREDNISolone SOD SUC 40 MG/1 ML VIAL IV SCH ×3 (04:01→22:00)
[2016-12-14 05:02] LABS: Basophils % 0.1 % (0.0-0.8); Eosinophils % 0.1 % (0.00-10.9); Hematocrit 42.3 VOL% (35.7-47.0); Hemoglobin 13.5 GM/DL (12.0-16.0); Immature Granulocytes % 0.6 %; Immature Granulocytes Absolute 0.04 #; Lymphocytes # 0.7 10*3/uL (1.4-4.0); Lymphocytes % 9.7 % (21.3-54.2); Mean Corpuscular HGB Conc 31.9 GM/DL (32-36); Mean Corpuscular Hemoglobin 29 PG (27-34); Mean Corpuscular Volume 89.6 FL (87-102); Mean Platelet Volume 11.2 FL (9.6-12.0); Monocytes # 0.2 10*3/uL (0.11-0.8); Monocytes % 2.4 % (1.7-12.7); Neutrophils # 6.2 10*3/uL (1.4-7.4); Neutrophils % 87.1 % (38.7-73.9); Platelet Count 161 T/CUMM (130-400); Red Blood Count 4.72 MC/CUMM (3.8-5.5); Red Cell Distribution Width 14.5 % (9.3-17.3); White Blood Count 7.2 T/CUMM (4-12)
[2016-12-14 05:30] LABS: Calcium 8.3 MG/DL (8.5-10.1); Magnesium 2.3 MG/DL (1.8-2.4); Osmolality,Calculated 298.8 MOS/KG (273-304); Potassium 4.6 MMOL/L (3.5-5.1)
--- NOTE | 2016-12-14 06:37 | Cardiothoracic Progress Note ---
Cardiothoracic Subjective Interval history: I received a consult on Mrs. Melara and I will plan to see her later today but I have reviewed her history as well as her recent cardiac catheterizations. As has been documented she is a 66-year-old lady who underwent bypass surgery 18 years ago and at that time had an internal mammary graft or anterior descending coronary artery and saphenous vein graft to the posterior descending and posterior lateral coronary vessels. Her postoperative course was stormy and required extended assisted ventilation requiring a tracheostomy. It took her almost 2 months to get to the point where she could not leave the hospital. She then did reasonably well until recently when she has been having increasing symptoms of exertional chest pain. Cardiac catheterization now shows that her internal mammary graft is open and in fact is very important and supplying her viable myocardium. Her posterior lateral graft is occluded anterior right posterior descending coronary graft is open but does have areas of diffuse disease some of which appear critical. Recent effort at PTCA of the circumflex coronary artery proved not to technically be possible. She continues to have intermittent exertional angina and I am wondering if her right coronary graft may in fact be the source of her problem. I am not sure this is amenable to PTCA but that is a potentially profitable area of investigation. I think that surgical intervention here should be in absolute last resort. This is partially because of her very complicated course previously although she has stopped smoking since her first operation. But more specifically because her distal vessels are suboptimal and I think a successful surgical result would be unlikely to result in long-term success. Also the possibility of injury to a patent internal mammary graft would be catastrophic. I will discuss this further with the patient later today but I am going to be unenthusiastic with her about the possibility of surgical intervention. Exam (Progress Note) - Constitutional Vitals: Period Temp Pulse Resp BP Sys/[place] Pulse Ox Last 24 Hr 97.1 F-99.2 F 73-99 18-20 118-133/53-72 88-97 Result/EKG - Labs CBC & BMP: 12/14/16 04:44 12/14/16 04:44 Labs: Laboratory Results - last 24 hr 12/13/16 12/13/16 12/13/16 07:04 07:04 09:39 WBC RBC Hgb Hct MCV MCH MCHC RDW Plt Count MPV Neut % (Auto) Lymph % (Auto) [place] % (Auto) Eos % (Auto) Baso % (Auto) Neut # (Auto) Lymph # (Auto) [place] # (Auto) Eos # (Auto) Baso # (Auto) Immature Gran % Nucleated RBC % Immature Gran # Nucleated RBCs # Immature Plt Fraction Sodium Potassium Chloride Carbon Dioxide Anion Gap BUN Creatinine GFR Calculation BUN/Creatinine Ratio Glucose POC Glucose 199 H Calculated Osmolality Uric Acid Calcium Magnesium Total Creatine Kinase 170 CK-MB (CK-2) 5.8 H CK and CKMB Interp 3.4 Troponin I 0.285 H D B-Natriuretic Peptide 42 12/13/16 12/13/16 12/13/16 09:46 09:49 12:19 WBC RBC Hgb Hct MCV MCH MCHC RDW Plt Count MPV Neut % (Auto) Lymph % (Auto) [place] % (Auto) Eos % (Auto) Baso % (Auto) Neut # (Auto) Lymph # (Auto) [place] # (Auto) Eos # (Auto) Baso # (Auto) Immature Gran % Nucleated RBC % Immature Gran # Nucleated RBCs # Immature Plt Fraction Sodium Potassium Chloride Carbon Dioxide Anion Gap BUN Creatinine GFR Calculation BUN/Creatinine Ratio Glucose POC Glucose 216 H Calculated Osmolality Uric Acid 8.1 H Calcium Magnesium Total Creatine Kinase CK-MB (CK-2) CK and CKMB Interp Troponin I 0.235 H B-Natriuretic Peptide 12/13/16 12/13/16 12/14/16 16:59 19:43 04:44 WBC 7.2 RBC 4.72 Hgb 13.5 Hct 42.3 MCV 89.6 MCH 29 MCHC 31.9 L RDW 14.5 Plt Count 161 MPV 11.2 Neut % (Auto) 87.1 H Lymph % (Auto) 9.7 L [place] % (Auto) 2.4 Eos % (Auto) 0.1 Baso % (Auto) 0.1 Neut # (Auto) 6.2 Lymph # (Auto) 0.7 L [place] # (Auto) 0.2 Eos # (Auto) 0.0 Baso # (Auto) 0.0 Immature Gran % 0.6 Nucleated RBC % 0.0 Immature Gran # 0.04 Nucleated RBCs # 0.00 Immature Plt Fraction 0.0 Sodium Potassium Chloride Carbon Dioxide Anion Gap BUN Creatinine GFR Calculation BUN/Creatinine Ratio Glucose POC Glucose 265 H 366 H Calculated Osmolality Uric Acid Calcium Magnesium Total Creatine Kinase CK-MB (CK-2) CK and CKMB Interp Troponin I B-Natriuretic Peptide 12/14/16 04:44 WBC RBC Hgb Hct MCV MCH MCHC RDW Plt Count MPV Neut % (Auto) Lymph % (Auto) [place] % (Auto) Eos % (Auto) Baso % (Auto) Neut # (Auto) Lymph # (Auto) [place] # (Auto) Eos # (Auto) Baso # (Auto) Immature Gran % Nucleated RBC % Immature Gran # Nucleated RBCs # Immature Plt Fraction Sodium 137 Potassium 4.6 Chloride 102 Carbon Dioxide 27 Anion Gap 12.6 BUN 37 H Creatinine 1.60 H GFR Calculation 40 BUN/Creatinine Ratio 23.00 H Glucose 396 H POC Glucose Calculated Osmolality 298.8 Uric Acid Calcium 8.3 L Magnesium 2.3 Total Creatine Kinase CK-MB (CK-2) CK and CKMB Interp Troponin I B-Natriuretic Peptide Quality Measures - VTE Contraindication to Pharmacological VTE Prophylaxis: Already on Theraputic Agent , No Prophylaxis Needed
[2016-12-14] MEDS: ALBUTEROL/IPRATROPIUM 3 ML NEB RESP TX SCH ×4 (07:27→19:50)
[2016-12-14] MEDS: RANOLAZINE 500 MG TABLET PO SCH ×2 (08:24→21:32)
[2016-12-14] MEDS: ALPRAZolam 0.5 MG TABLET PO SCH ×2 (08:25→21:31)
[2016-12-14] MEDS: ATENOLOL 25 MG TABLET PO SCH (08:25)
[2016-12-14] MEDS: PANTOPRAZOLE 40 MG TABLET PO SCH (08:25)
[2016-12-14] MEDS: ASPIRIN 325 MG TABLET PO SCH (08:26)
[2016-12-14] MEDS: LORATADINE 10 MG TABLET PO SCH (08:27)
[2016-12-14] MEDS: MAGNESIUM OXIDE 400 MG TABLET PO SCH ×2 (08:27→21:31)
[2016-12-14] MEDS: ISOSORBIDE MONONITRATE 60 MG TABLET PO SCH (08:27)
[2016-12-14] MEDS: DOCUSATE SODIUM 100 MG CAPSULE PO SCH ×2 (08:27→21:32)
[2016-12-14] MEDS: FUROSEMIDE 40 MG TABLET PO SCH ×2 (08:28→16:11)
[2016-12-14] MEDS: ATORVASTATIN 40 MG TABLET PO SCH (08:28)
[2016-12-14] MEDS: CLOPIDOGREL 75 MG TABLET PO SCH (08:28)
[2016-12-14] MEDS: INSULIN NPH/REGULAR 70/30 100 UNIT/ML SUBCUT SCH ×2 (08:29→16:11)
[2016-12-14] MEDS: GABAPENTIN 300 MG CAPSULE PO SCH ×2 (08:29→21:32)
[2016-12-14] MEDS: NITROGLYCERIN SL 0.4 MG TABLET SL PRN ×5 (08:33→18:49)
[2016-12-14] MEDS: BECLOMETHASONE 80 MCG/PUFF INHALER 8.7 GM INH SCH ×2 (08:40→21:33)
--- NOTE | 2016-12-14 12:04 | Cardiology Progress Note ---
Assessment and Plan - Time spent with patient Time spent with patient: Greater than 30 minutes (1) CAD (coronary artery disease) Status: Chronic Assessment and plan: SEE PLAN OF CARE LISTED BELOW Current Visit: Yes (2) Hypertension Status: Chronic Assessment and plan: SEE PLAN OF CARE LISTED BELOW Current Visit: Yes (3) Dyslipidemia Status: Chronic Assessment and plan: SEE PLAN OF CARE LISTED BELOW Current Visit: Yes (4) Allergy to contrast media (used for diagnostic x-rays) Status: Acute Current Visit: No (5) Cellulitis of both lower extremities Problem details: acute on chronic Status: Acute Current Visit: No (6) Obstructive sleep apnea Status: Chronic Assessment and plan: SEE PLAN OF CARE LISTED BELOW Current Visit: No (7) Overweight Status: Chronic Assessment and plan: SEE PLAN OF CARE LISTED BELOW Current Visit: No (8) Type II diabetes mellitus Status: Chronic Assessment and plan: SEE PLAN OF CARE LISTED BELOW Current Visit: No Qualifiers: Diabetes mellitus complication status: with skin complications Diabetes mellitus complication detail: with dermatitis Qualified Code(s): E11.620 - Type 2 diabetes mellitus with diabetic dermatitis Cardiology - PN: Subj Interval history: 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 ABARCA WITH RECENT LHC BY DR. MAGALLANES SUMMARY: Mrs. Melara, 66WF, has a history of known, complicated coronary artery disease, hypertension, hyperlipidemia, diabetes mellitus. She is status post CABG in the 90s with KIRKPATRICK-LAD, SVG-RCA, and additional saphenous vein graft. Underwent LHC twice in the past month. She recently underwent cardiac catheterization November 10, [address] Abarca. She was found to have a patent KIRKPATRICK-LAD, chronic pauma RCA with a SVG to the RCA which was diffusely diseased but patent, as well as some pauma circumflex disease, most severe in the distal circumflex and a trifurcation point. Medical therapy was optimized, and the patient continued to have anginal symptoms. More recently, she underwent repeat catheterization with a failed attempted PCI to the circumflex artery by Dr. Magallanes in November 20, 2016. He was unable to wire the extent of the circumflex to proceed with intervention. She has been continued on medical therapy. Patient presented to ED of [facility] December 13, 2016 with continued complaints of chest discomfort concerning for angina. This has occurred primarily with mild to moderate exertion over the past 2 weeks. When she failed to respond to 3 nitroglycerin, she felt as if she should be evaluated and was brought to the ER. She has been housed in our telemetry unit overnight. She has chronic, stable dyspnea on exertion which is overall unchanged. Dr. Morillo has been consulted for possible redo ACB. She had a complicated postop course post CABG in the requiring tracheostomy. She spent 61 days in the ICU. She was previously followed by Dr. Ramos. DECEMBER 14, 2016: This morning, Ms. Melara tells me she had chest pain early this morning which woke her from her sleep. She required 2 nitroglycerin to relieve the discomfort is currently chest pain-free. She sitting up in the bedside chair. Dr. Morillo has been consulted for possible redo ACB but doubtful she is a good candidate for surgical revascularization. Dr. Bonilla saw patient over the weekend and recommended medical therapy and cardiac rehabilitation. However , all options are being considered at this time. Patient simply wants to feel better. I will order another set of cardiac biomarkers since the patient did have chest discomfort this morning. Glucose is uncontrolled and will verify that hospitalist is addressing. She is on maximum dose of Isosorbide Mononitrate (maximized dose started yesterday) and Ranexa. Continue aspirin and Plavix, Atorvastatin, Atenolol. Will further discuss with Dr. Goldberg and await additional recommendations per ASSESSMENT/PLAN: 1. CRESCENDO ANGINA - she has chronic severe two-vessel coronary artery disease that has failed medical therapy. She is on an appropriate regimen. There has also been a failed attempt at percutaneous intervention of the circumflex artery by a reasonably aggressive and skilled centrifuge operator. She has a history of CABG in the which was followed by a complicated postoperative course the required tracheostomy. Some consideration has been made to intervention to the saphenous vein graft to the right coronary artery. I have reviewed her last 2 films carefully. She has a robust, patent KIRKPATRICK to the LAD and this territory appears to be well vascularized. Additionally, the LAD gives rise to some right coronary artery collateralization. The pauma right coronary artery itself is a puny vessel. The vein graft to this vessel is diffusely diseased, and in my opinion, even if it were to be revascularized I do not believe it would have a long-term patency rate given the small nature of the pauma right coronary artery. Again, there is some collateralization from the KIRKPATRICK to LAD which also makes the case for medical therapy. The circumflex artery is a complex territory, with distal trifurcation disease, and each of these vessels are themselves very small vessels. She tells me that she has been referred to Dr. Morillo for evaluation of a redo CABG surgery. We certainly can consult him and get his expert opinion. My opinion, which I have offered to her, is that we continue with medical therapy, refer her for cardiac rehabilitation to try to increase her collateral supply, and also refer her to the [facility] to try to continue with her weight loss. While this approach is only a long-term strategy, I believe she is at very high risk for a redo bypass surgery, and that there is very little benefit to be gained. But again, will get the opinion of Dr. Morillo. We can also readdress the case with Dr. Magallanes. Dr. Goldberg will be assessing patient today and may offer another opinion as well. She will have an additional vat tender tomorrow reviewing her case which will offer a second opinion as well. 2. Bilateral lower extremity edema - she has had a preserved systolic function , and her BNP is low, so I do not believe this represents heart failure. It is likely related to the cellulitis in her lower extremities. She does have some decreased pulses in this area as well. His ultrasound bilateral lower extremities reveal no evidence of DVT. ABIs have been ordered. Her cellulitis will be treated by the hospitalist service. Continue with diuresis and elevation of legs. 3. Coronary artery disease - as above. 4. Hypertension - chronic, stable. 5. Diabetes mellitus - chronic, normally controlled glucose levels. Will verify she continues with sliding scale insulin protocol. Exam (Progress Note) - Constitutional Vitals: Period Temp Pulse Resp BP Sys/Ospina Pulse Ox Last 24 Hr 96.7 F-98.0 F 73-88 17-20 118-133/53-59 89-99 Exam: General: [Appears well with no apparent distress.] [Pleasant and cooperative. ] [Appears comfortable.] HEENT: [PERRL, normocephalic, atraumatic. Mucous membranes moist. No jaundice noted. Conjunctiva moist and clear, sclerae anicteric] Neck: Difficult to assess for JVD due to habitus. No thyromegaly or lymphadenopathy noted. No carotid bruit appreciated Cardiac: [Regular rate and rhythm.] [No murmur rub or gallop.] Lungs: [Clear to auscultation without accessory muscle use to assist the respiratory pattern.] Not requiring oxygen Abdomen: Soft, bowel sounds normoactive. Nontender and nondistended. No abdominal bruit or thrill noted. No masses noted. Musculoskeletal: No fluid collection. Decreased range of motion is noted. Extremities: No clubbing, cyanosis noted. [1+ bilateral lower extremity edema noted.] Upper extremity pulses 2+. Decreased pulses bilateral lower extremities but Refill less than 3 seconds. Skin: Bilateral lower extremities reveal cellulitis type changes with the left lower extremity with a moderate amount of erythema. Several areas of Neuro: Awake, alert and oriented 3. Moves all extremities well without hemiparesis or paralysis. No essential tremor is appreciated. Result/EKG - Labs CBC & BMP: 12/14/16 04:44 12/14/16 04:44 Lab Results: I have reviewed the past 24 hour labs Labs: Laboratory Results - last 24 hr 12/13/16 12/13/16 12/13/16 07:04 12:19 16:59 WBC RBC Hgb Hct MCV MCH MCHC RDW Plt Count MPV Neut % (Auto) Lymph % (Auto) [place] % (Auto) Eos % (Auto) Baso % (Auto) Neut # (Auto) Lymph # (Auto) [place] # (Auto) Eos # (Auto) Baso # (Auto) Immature Gran % Nucleated RBC % Immature Gran # Nucleated RBCs # Immature Plt Fraction Sodium Potassium Chloride Carbon Dioxide Anion Gap BUN Creatinine GFR Calculation BUN/Creatinine Ratio Glucose POC Glucose 216 H 265 H Calculated Osmolality Calcium Magnesium B-Natriuretic Peptide 42 12/13/16 12/14/16 12/14/16 19:43 04:44 04:44 WBC 7.2 RBC 4.72 Hgb 13.5 Hct 42.3 MCV 89.6 MCH 29 MCHC 31.9 L RDW 14.5 Plt Count 161 MPV 11.2 Neut % (Auto) 87.1 H Lymph % (Auto) 9.7 L [place] % (Auto) 2.4 Eos % (Auto) 0.1 Baso % (Auto) 0.1 Neut # (Auto) 6.2 Lymph # (Auto) 0.7 L [place] # (Auto) 0.2 Eos # (Auto) 0.0 Baso # (Auto) 0.0 Immature Gran % 0.6 Nucleated RBC % 0.0 Immature Gran # 0.04 Nucleated RBCs # 0.00 Immature Plt Fraction 0.0 Sodium 137 Potassium 4.6 Chloride 102 Carbon Dioxide 27 Anion Gap 12.6 BUN 37 H Creatinine 1.60 H GFR Calculation 40 BUN/Creatinine Ratio 23.00 H Glucose 396 H POC Glucose 366 H Calculated Osmolality 298.8 Calcium 8.3 L Magnesium 2.3 B-Natriuretic Peptide 12/14/16 07:33 WBC RBC Hgb Hct MCV MCH MCHC RDW Plt Count MPV Neut % (Auto) Lymph % (Auto) [place] % (Auto) Eos % (Auto) Baso % (Auto) Neut # (Auto) Lymph # (Auto) [place] # (Auto) Eos # (Auto) Baso # (Auto) Immature Gran % Nucleated RBC % Immature Gran # Nucleated RBCs # Immature Plt Fraction Sodium Potassium Chloride Carbon Dioxide Anion Gap BUN Creatinine GFR Calculation BUN/Creatinine Ratio Glucose POC Glucose 353 H Calculated Osmolality Calcium Magnesium B-Natriuretic Peptide - Diagnostic Findings Procedure: Chest x-ray: report reviewed by me, Ultrasound: report reviewed by me - EKG EKG results: interpreted by me EKG shows: sinus rhythm Quality Measures - VTE Contraindication to Pharmacological VTE Prophylaxis: Already on Theraputic Agent , No Prophylaxis Needed Specialty Discharge - Follow Up or Referrals
[2016-12-14] MEDS ORDERED: INSULIN REGULAR 100 UNIT/ML SUBCUT SCH ×2 (12:49→16:30)
[2016-12-14] MEDS: INSULIN REGULAR 100 UNIT/ML SUBCUT SCH ×4 (13:07→22:38)
[2016-12-14] MEDS ORDERED: GLIMEPIRIDE 2 MG TABLET PO ONE (15:23)
--- NOTE | 2016-12-14 18:15 | Internal Med Progress Note ---
Assessment and Plan (1) CAD (coronary artery disease) Status: Chronic Current Visit: Yes (2) COPD (chronic obstructive pulmonary disease) Status: Chronic Current Visit: Yes (3) Diabetes mellitus Status: Chronic Current Visit: Yes Qualifiers: Diabetes mellitus type: type 2 (4) Progressive angina Status: Chronic Current Visit: Yes (5) Shortness of breath Problem details: acute on chronic Status: Chronic Current Visit: Yes (6) Obstructive sleep apnea Status: Chronic Current Visit: Yes Internal Medicine - PN: Subj Interval history: This is a 66 year old female with history of COPD, recurrent bronchitis, DULCE on CPAP, DM, peripheral neuropathy, CAD/CABG, coronary artery stent placement, dyslipidemia, recurrent cellulitis to lower extremities, hyperuricemia, renal insufficiency, who presented to ER with worsening angina. She has frequent anginal pain and is on Ranexa. She is under conservative managment for CAD. Glucose levels are uncontrolled Adjusting meds. She has been using 70/30 insulin mix at home, because she can't afford long acting insulin. However, dietary changes are needed. She reports losing about 10 pounds with attempts at weight loss. Will consult diabetic supervisor tubing to help. Have decreased her daily calories to 1500. Exam (Progress Note) - Constitutional Vitals: Period Temp Pulse Resp BP Sys/Ospina Pulse Ox Last 24 Hr 96.7 F-98.0 F 68-90 16-22 104-133/53-59 89-99 General appearance: no acute distress - Head Head exam: Present: normocephalic - Eye Eye exam: Present: EOMI - Respiratory Respiratory exam: Present: clear to auscultation bilaterally - Cardiovascular Cardiovascular exam: Present: regular rate and rhythm - GI/Abdominal GI/Abdominal exam: Present: soft. Absent: tenderness - Extremities Exam Extremities exam: Present: other (redness to both lower extremities). Absent: edema - Neurological Exam Neurological exam: Present: alert, oriented X3 - Psychiatric Psychiatric exam: Present: normal mood - Skin Skin exam: Present: warm, dry Results - Labs CBC & BMP: 12/14/16 04:44 12/14/16 18:41 - EKG EKG shows: sinus rhythm - Diagnostic Findings Procedure: Chest x-ray: report reviewed by me, image reviewed by me Quality Measures - VTE Contraindication to Pharmacological VTE Prophylaxis: Already on Theraputic Agent , No Prophylaxis Needed Specialty Discharge - Follow Up or Referrals
[2016-12-14] MEDS: IVABRADINE HCL 5 MG TABLET PO SCH (18:47)
[2016-12-14] MEDS: GLIMEPIRIDE 4 MG TABLET PO SCH (18:47)
[2016-12-14] MEDS ORDERED: INSULIN LISPRO 100 UNIT/ML SUBCUT ONE (21:42)
[2016-12-14] MEDS: SODIUM CHLORIDE 0.45% 1,000 ML IV SCH (22:39)
[2016-12-15] MEDS ORDERED: INSULIN GLARGINE 100 UNIT/ML SUBCUT ONE (00:54)
[2016-12-15] MEDS: methylPREDNISolone SOD SUC 40 MG/1 ML VIAL IV SCH ×3 (04:30→22:06)
[2016-12-15] MEDS: ENOXAPARIN 100 MG/ML SYRINGE SUBCUT SCH ×2 (04:31→18:01)
[2016-12-15 06:01] LABS: Basophils % 0.1 % (0.0-0.8); Hematocrit 43.1 VOL% (35.7-47.0); Hemoglobin 13.8 GM/DL (12.0-16.0); Immature Granulocytes % 0.7 %; Immature Granulocytes Absolute 0.07 #; Lymphocytes # 0.7 10*3/uL (1.4-4.0); Lymphocytes % 7.6 % (21.3-54.2); Mean Corpuscular Hemoglobin 29 PG (27-34); Mean Corpuscular Volume 89.2 FL (87-102); Mean Platelet Volume 11.5 FL (9.6-12.0); Monocytes # 0.6 10*3/uL (0.11-0.8); Monocytes % 6.3 % (1.7-12.7); Neutrophils # 8.3 10*3/uL (1.4-7.4); Neutrophils % 85.3 % (38.7-73.9); Platelet Count 182 T/CUMM (130-400); Red Blood Count 4.83 MC/CUMM (3.8-5.5); Red Cell Distribution Width 14.7 % (9.3-17.3); White Blood Count 9.8 T/CUMM (4-12)
[2016-12-15 06:38] LABS: Calcium 8.8 MG/DL (8.5-10.1); Magnesium 2.6 MG/DL (1.8-2.4); Potassium 4.7 MMOL/L (3.5-5.1)
[2016-12-15] MEDS: BUDESONIDE 0.25 MG/2 ML NEB RESP TX SCH ×2 (07:58→20:25)
[2016-12-15] MEDS: ALBUTEROL/IPRATROPIUM 3 ML NEB RESP TX SCH ×4 (07:59→20:25)
[2016-12-15] MEDS ORDERED: INSULIN LISPRO 100 UNIT/ML SUBCUT SCH (08:00)
[2016-12-15] MEDS ORDERED: NON-FORMULARY MEDICATION (Empagliflozin [Jardiance] 10 MG) PO SCH (09:00)
[2016-12-15] MEDS ORDERED: INSULIN GLARGINE 100 UNIT/ML SUBCUT SCH ×2 (09:00→21:00)
[2016-12-15] MEDS: ATENOLOL 25 MG TABLET PO SCH (09:21)
[2016-12-15] MEDS: ASPIRIN 325 MG TABLET PO SCH (09:21)
[2016-12-15] MEDS: ATORVASTATIN 40 MG TABLET PO SCH (09:22)
[2016-12-15] MEDS: GLIMEPIRIDE 4 MG TABLET PO SCH ×2 (09:22→18:00)
[2016-12-15] MEDS: RANOLAZINE 500 MG TABLET PO SCH ×2 (09:22→22:03)
[2016-12-15] MEDS: FUROSEMIDE 40 MG TABLET PO SCH ×2 (09:22→18:00)
[2016-12-15] MEDS: GABAPENTIN 300 MG CAPSULE PO SCH ×2 (09:22→22:06)
[2016-12-15] MEDS: DOCUSATE SODIUM 100 MG CAPSULE PO SCH ×2 (09:22→22:04)
[2016-12-15] MEDS: ALPRAZolam 0.5 MG TABLET PO SCH ×2 (09:22→22:04)
[2016-12-15] MEDS: ISOSORBIDE MONONITRATE 60 MG TABLET PO SCH (09:22)
[2016-12-15] MEDS: PANTOPRAZOLE 40 MG TABLET PO SCH (09:23)
[2016-12-15] MEDS: LORATADINE 10 MG TABLET PO SCH (09:23)
[2016-12-15] MEDS: INSULIN LISPRO 100 UNIT/ML SUBCUT SCH ×3 (09:23→18:01)
[2016-12-15] MEDS: CLOPIDOGREL 75 MG TABLET PO SCH (09:23)
[2016-12-15] MEDS: IVABRADINE HCL 5 MG TABLET PO SCH ×2 (09:29→18:00)
[2016-12-15] MEDS: MAGNESIUM OXIDE 400 MG TABLET PO SCH ×2 (09:32→22:03)
[2016-12-15] MEDS: SODIUM CHLORIDE 0.45% 1,000 ML IV SCH ×2 (09:32→22:11)
[2016-12-15] MEDS: INSULIN REGULAR 100 UNIT/ML SUBCUT SCH ×4 (09:33→22:04)
[2016-12-15] MEDS: BECLOMETHASONE 80 MCG/PUFF INHALER 8.7 GM INH SCH ×2 (09:33→22:06)
--- NOTE | 2016-12-15 10:52 | Cardiology Progress Note ---
Assessment and Plan - Time spent with patient Time spent with patient: Greater than 30 minutes (1) CAD (coronary artery disease) Status: Chronic Assessment and plan: SEE PLAN OF CARE LISTED BELOW Current Visit: Yes (2) Hypertension Status: Chronic Assessment and plan: SEE PLAN OF CARE LISTED BELOW Current Visit: Yes (3) Dyslipidemia Status: Chronic Assessment and plan: SEE PLAN OF CARE LISTED BELOW Current Visit: Yes (4) Allergy to contrast media (used for diagnostic x-rays) Status: Acute Current Visit: No (5) Cellulitis of both lower extremities Problem details: acute on chronic Status: Acute Current Visit: No (6) Obstructive sleep apnea Status: Chronic Assessment and plan: SEE PLAN OF CARE LISTED BELOW Current Visit: Yes (7) Overweight Status: Chronic Assessment and plan: SEE PLAN OF CARE LISTED BELOW Current Visit: No (8) Type II diabetes mellitus Status: Chronic Assessment and plan: SEE PLAN OF CARE LISTED BELOW Current Visit: No Qualifiers: Diabetes mellitus complication status: with skin complications Diabetes mellitus complication detail: with dermatitis Qualified Code(s): E11.620 - Type 2 diabetes mellitus with diabetic dermatitis Cardiology - PN: Subj Interval history: 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 ABARCA WITH RECENT LHC BY DR. MAGALLANES SUMMARY: Mrs. Melara, 66WF, has a history of known, complicated coronary artery disease, hypertension, hyperlipidemia, diabetes mellitus. She is status post CABG in the 90s with KIRKPATRICK-LAD, SVG-RCA, and additional saphenous vein graft. Underwent LHC twice in the past month. She recently underwent cardiac catheterization November 10, [address] Abarca. She was found to have a patent KIRKPATRICK-LAD, chronic lumbee RCA with a SVG to the RCA which was diffusely diseased but patent, as well as some lumbee circumflex disease, most severe in the distal circumflex and a trifurcation point. Medical therapy was optimized, and the patient continued to have anginal symptoms. More recently, she underwent repeat catheterization with a failed attempted PCI to the circumflex artery by Dr. Magallanes in November 20, 2016. He was unable to wire the extent of the circumflex to proceed with intervention. She has been continued on medical therapy. Patient presented to ED of [facility] December 13, 2016 with continued complaints of chest discomfort concerning for angina. This has occurred primarily with mild to moderate exertion over the past 2 weeks. When she failed to respond to 3 nitroglycerin, she felt as if she should be evaluated and was brought to the ER. She has been housed in our telemetry unit overnight. She has chronic, stable dyspnea on exertion which is overall unchanged. Dr. Morillo has been consulted for possible redo ACB. She had a complicated postop course post CABG in the requiring tracheostomy. She spent 61 days in the ICU. She was previously followed by Dr. Ramos. DECEMBER 14, 2016: This morning, Ms. Melara tells me she had chest pain early this morning which woke her from her sleep. She required 2 nitroglycerin to relieve the discomfort is currently chest pain-free. She sitting up in the bedside chair. Dr. Morillo has been consulted for possible redo ACB but doubtful she is a good candidate for surgical revascularization. Dr. Bonilla saw patient over the weekend and recommended medical therapy and cardiac rehabilitation. However , all options are being considered at this time. Patient simply wants to feel better. I will order another set of cardiac biomarkers since the patient did have chest discomfort this morning. Glucose is uncontrolled and will verify that hospitalist is addressing. She is on maximum dose of Isosorbide Mononitrate (maximized dose started yesterday) and Ranexa. Continue aspirin and Plavix, Atorvastatin, Atenolol. Will further discuss with Dr. Goldberg and await additional recommendations. DECEMBER 15, 2016: Patient had one brief episode of chest pain over the past 24 hours. This occurred when she was walking from the bathroom to the chair. She is feeling better in general today. Dr. Morillo counseled patient with his opinion yesterday and feels as if she is a poor candidate for redo CABG. Dr. Goldberg has seen patient and feels that she may benefit from another heart catheterization with attempted PCI. Patient reports "I just cannot live this way. Something has to be done." In the past, [facility] has been available in [place], [place] however, I do not think we have this capability any longer. She is tolerating Corlanor without problems. Will further discuss with Dr. Goldberg and await additional recommendations. ASSESSMENT/PLAN: 1. CRESCENDO ANGINA - she has chronic severe two-vessel coronary artery disease that has failed medical therapy. She is on an appropriate regimen with Corlanor added yesterday. She did have one episode of chest pain within the past 24 hours. See discussion above. 2. Bilateral lower extremity edema - she has had a preserved systolic function , and her BNP is low, this is not CHF. It is likely related to the cellulitis in her lower extremities. She does have some decreased pulses in this area as well. Venous US BLE reveals no DVT. Continue with diuresis and elevation of legs. Diuresed 2 kg overnight. 3. Coronary artery disease - as above. 4. Hypertension - chronic, stable. 5. Diabetes mellitus - chronic, normally well-controlled glucose levels. Will verify she continues with sliding scale insulin protocol. Adjustments made to regimen yesterday for better blood pressure control while on steroids. Exam (Progress Note) - Constitutional Vitals: Period Temp Pulse Resp BP Sys/Ospina Pulse Ox Last 24 Hr 96.7 F-97.9 F 68-92 16-22 104-142/54-75 90-99 Exam: General: [Appears well with no apparent distress.] [Pleasant and cooperative. ] [Appears comfortable.] HEENT: [PERRL, normocephalic, atraumatic. Mucous membranes moist. No jaundice noted. Conjunctiva moist and clear, sclerae anicteric] Neck: Difficult to assess for JVD due to habitus. No thyromegaly or lymphadenopathy noted. No carotid bruit appreciated Cardiac: [Regular rate and rhythm.] [No murmur rub or gallop.] Lungs: [Clear to auscultation without accessory muscle use to assist the respiratory pattern.] Not requiring oxygen Abdomen: Soft, bowel sounds normoactive. Nontender and nondistended. No abdominal bruit or thrill noted. No masses noted. Musculoskeletal: No fluid collection. Decreased range of motion is noted. Extremities: No clubbing, cyanosis noted. [1+ bilateral lower extremity edema noted.] Upper extremity pulses 2+. Decreased pulses bilateral lower extremities but Refill less than 3 seconds. Skin: Bilateral lower extremities reveal cellulitis type changes with the left lower extremity with a moderate amount of erythema. Several areas of Neuro: Awake, alert and oriented 3. Moves all extremities well without hemiparesis or paralysis. No essential tremor is appreciated. Result/EKG - Labs CBC & BMP: 12/15/16 04:36 12/15/16 04:36 Lab Results: I have reviewed the past 24 hour labs Labs: Laboratory Results - last 24 hr 12/14/16 12/14/16 12/14/16 12:26 15:15 15:34 WBC RBC Hgb Hct MCV MCH MCHC RDW Plt Count MPV Neut % (Auto) Lymph % (Auto) [place] % (Auto) Eos % (Auto) Baso % (Auto) Neut # (Auto) Lymph # (Auto) [place] # (Auto) Eos # (Auto) Baso # (Auto) Immature Gran % Nucleated RBC % Immature Gran # Nucleated RBCs # Immature Plt Fraction Sodium Potassium Chloride Carbon Dioxide Anion Gap BUN Creatinine GFR Calculation BUN/Creatinine Ratio Glucose 506 H* POC Glucose 423 H 467 H Calculated Osmolality Calcium Magnesium 12/14/16 12/14/16 12/14/16 17:43 18:41 20:18 WBC RBC Hgb Hct MCV MCH MCHC RDW Plt Count MPV Neut % (Auto) Lymph % (Auto) [place] % (Auto) Eos % (Auto) Baso % (Auto) Neut # (Auto) Lymph # (Auto) [place] # (Auto) Eos # (Auto) Baso # (Auto) Immature Gran % Nucleated RBC % Immature Gran # Nucleated RBCs # Immature Plt Fraction Sodium Potassium Chloride Carbon Dioxide Anion Gap BUN Creatinine GFR Calculation BUN/Creatinine Ratio Glucose 475 H POC Glucose 461 H 419 H Calculated Osmolality Calcium Magnesium 12/14/16 12/15/16 12/15/16 21:16 00:50 01:52 WBC RBC Hgb Hct MCV MCH MCHC RDW Plt Count MPV Neut % (Auto) Lymph % (Auto) [place] % (Auto) Eos % (Auto) Baso % (Auto) Neut # (Auto) Lymph # (Auto) [place] # (Auto) Eos # (Auto) Baso # (Auto) Immature Gran % Nucleated RBC % Immature Gran # Nucleated RBCs # Immature Plt Fraction Sodium Potassium Chloride Carbon Dioxide Anion Gap BUN Creatinine GFR Calculation BUN/Creatinine Ratio Glucose 456 H POC Glucose 260 H 253 H Calculated Osmolality Calcium Magnesium 12/15/16 12/15/16 12/15/16 04:36 04:36 08:18 WBC 9.8 D RBC 4.83 Hgb 13.8 Hct 43.1 MCV 89.2 MCH 29 MCHC 32.0 RDW 14.7 Plt Count 182 MPV 11.5 Neut % (Auto) 85.3 H Lymph % (Auto) 7.6 L [place] % (Auto) 6.3 Eos % (Auto) 0.0 Baso % (Auto) 0.1 Neut # (Auto) 8.3 H Lymph # (Auto) 0.7 L [place] # (Auto) 0.6 Eos # (Auto) 0.0 Baso # (Auto) 0.0 Immature Gran % 0.7 Nucleated RBC % 0.0 Immature Gran # 0.07 Nucleated RBCs # 0.00 Immature Plt Fraction 0.0 Sodium 136 Potassium 4.7 Chloride 101 Carbon Dioxide 30 Anion Gap 9.7 BUN 36 H Creatinine 1.20 H GFR Calculation 57 BUN/Creatinine Ratio 30.00 H Glucose 245 H POC Glucose 255 H Calculated Osmolality 287.0 Calcium 8.8 Magnesium 2.6 H - EKG EKG results: interpreted by me EKG shows: sinus rhythm Quality Measures - VTE Contraindication to Pharmacological VTE Prophylaxis: Already on Theraputic Agent , No Prophylaxis Needed Specialty Discharge - Follow Up or Referrals
--- NOTE | 2016-12-15 21:06 | Internal Med Progress Note ---
Assessment and Plan (1) CAD (coronary artery disease) Status: Chronic Current Visit: Yes Qualifiers: Associated angina: with stable angina (2) COPD (chronic obstructive pulmonary disease) Status: Chronic Current Visit: Yes (3) Diabetes mellitus Status: Chronic Current Visit: Yes Qualifiers: Diabetes mellitus type: type 2 (4) Progressive angina Status: Chronic Current Visit: Yes (5) Shortness of breath Problem details: acute on chronic Status: Chronic Current Visit: Yes (6) Obstructive sleep apnea Status: Chronic Current Visit: Yes Internal Medicine - PN: Subj Interval history: This is a 66 year old female with history of COPD, recurrent bronchitis, DULCE on CPAP, DM, peripheral neuropathy, CAD/CABG, coronary artery stent placement, dyslipidemia, recurrent cellulitis to lower extremities, hyperuricemia, renal insufficiency, who presented to ER with worsening angina. She has frequent anginal pain and is on Ranexa. She is under conservative managment for CAD. Glucose levels are uncontrolled Adjusting meds. She has been using 70/30 insulin mix at home, because she can't afford long acting insulin. However, dietary changes are needed. She reports losing about 10 pounds with attempts at weight loss. Will consult diabetic garde manger to help. Have decreased her daily calories to 1500. We have to get control of glucose levels and insulin dosing adjustments before she can be discharge. Improving. Exam (Progress Note) - Constitutional Vitals: Period Temp Pulse Resp BP Sys/Ospina Pulse Ox Last 24 Hr 96.7 F-98 F 63-92 16-22 107-142/54-75 91-96 Exam: General appearance: no acute distress - Respiratory Respiratory exam: Present: clear to auscultation bilaterally - Cardiovascular Cardiovascular exam: Present: regular rate and rhythm - GI/Abdominal GI/Abdominal exam: Present: soft. Absent: tenderness - Extremities Exam Extremities exam: Present: other (redness to both lower extremities). Absent: edema - Neurological Exam Neurological exam: Present: alert, oriented X3 - Psychiatric Psychiatric exam: Present: normal mood - Skin Skin exam: Present: warm, dry Results - Labs CBC & BMP: 12/16/16 05:35 12/16/16 05:35 Quality Measures - VTE Contraindication to Pharmacological VTE Prophylaxis: Already on Theraputic Agent , No Prophylaxis Needed Specialty Discharge - Follow Up or Referrals
[2016-12-15] MEDS: INSULIN GLARGINE 100 UNIT/ML SUBCUT SCH (22:04)
[2016-12-16] MEDS: methylPREDNISolone SOD SUC 40 MG/1 ML VIAL IV SCH ×2 (04:44→12:21)
[2016-12-16] MEDS: ENOXAPARIN 100 MG/ML SYRINGE SUBCUT SCH ×2 (04:56→17:05)
[2016-12-16 05:57] LABS: Basophils % 0.1 % (0.0-0.8); Hematocrit 41.4 VOL% (35.7-47.0); Hemoglobin 13.4 GM/DL (12.0-16.0); Immature Granulocytes % 0.9 %; Immature Granulocytes Absolute 0.07 #; Lymphocytes % 12.8 % (21.3-54.2); Mean Corpuscular HGB Conc 32.4 GM/DL (32-36); Mean Corpuscular Hemoglobin 29 PG (27-34); Mean Corpuscular Volume 88.3 FL (87-102); Mean Platelet Volume 11.5 FL (9.6-12.0); Monocytes # 0.5 10*3/uL (0.11-0.8); Neutrophils # 6.3 10*3/uL (1.4-7.4); Neutrophils % 80.2 % (38.7-73.9); Platelet Count 145 T/CUMM (130-400); Red Blood Count 4.69 MC/CUMM (3.8-5.5); Red Cell Distribution Width 14.7 % (9.3-17.3); White Blood Count 7.8 T/CUMM (4-12)
[2016-12-16 06:43] LABS: Calcium 8.6 MG/DL (8.5-10.1); Magnesium 2.6 MG/DL (1.8-2.4); Potassium 4.4 MMOL/L (3.5-5.1)
[2016-12-16] MEDS: ALBUTEROL/IPRATROPIUM 3 ML NEB RESP TX SCH ×4 (07:33→20:19)
[2016-12-16] MEDS: BUDESONIDE 0.25 MG/2 ML NEB RESP TX SCH ×2 (07:33→20:19)
[2016-12-16] MEDS: INSULIN REGULAR 100 UNIT/ML SUBCUT SCH ×4 (08:29→21:44)
[2016-12-16] MEDS: INSULIN LISPRO 100 UNIT/ML SUBCUT SCH ×3 (08:29→17:05)
[2016-12-16] MEDS: INSULIN GLARGINE 100 UNIT/ML SUBCUT SCH ×2 (08:29→21:41)
[2016-12-16] MEDS: GLIMEPIRIDE 4 MG TABLET PO SCH ×2 (08:30→17:04)
[2016-12-16] MEDS: ISOSORBIDE MONONITRATE 60 MG TABLET PO SCH (08:30)
[2016-12-16] MEDS: ASPIRIN 325 MG TABLET PO SCH (08:30)
[2016-12-16] MEDS: IVABRADINE HCL 5 MG TABLET PO SCH ×2 (08:30→17:04)
[2016-12-16] MEDS: PANTOPRAZOLE 40 MG TABLET PO SCH (08:30)
[2016-12-16] MEDS: ATORVASTATIN 40 MG TABLET PO SCH (08:30)
[2016-12-16] MEDS: ATENOLOL 25 MG TABLET PO SCH (08:30)
[2016-12-16] MEDS: RANOLAZINE 500 MG TABLET PO SCH ×2 (08:30→21:41)
[2016-12-16] MEDS: CLOPIDOGREL 75 MG TABLET PO SCH (08:30)
[2016-12-16] MEDS: LORATADINE 10 MG TABLET PO SCH (08:30)
[2016-12-16] MEDS: ALPRAZolam 0.5 MG TABLET PO SCH ×2 (08:30→21:41)
[2016-12-16] MEDS: GABAPENTIN 300 MG CAPSULE PO SCH ×2 (08:31→21:41)
[2016-12-16] MEDS: FUROSEMIDE 40 MG TABLET PO SCH ×2 (08:31→17:04)
[2016-12-16] MEDS: DOCUSATE SODIUM 100 MG CAPSULE PO SCH ×2 (08:31→21:41)
[2016-12-16] MEDS: SODIUM CHLORIDE 0.45% 1,000 ML IV SCH ×2 (08:31→18:25)
[2016-12-16] MEDS: MAGNESIUM OXIDE 400 MG TABLET PO SCH ×2 (08:38→21:43)
[2016-12-16] MEDS: BECLOMETHASONE 80 MCG/PUFF INHALER 8.7 GM INH SCH ×2 (08:38→21:44)
--- NOTE | 2016-12-16 10:33 | Cardiology Progress Note ---
Assessment and Plan - Time spent with patient Time spent with patient: Greater than 30 minutes (1) CAD (coronary artery disease) Status: Chronic Assessment and plan: SEE PLAN OF CARE LISTED BELOW Current Visit: Yes Qualifiers: Associated angina: with stable angina (2) Hypertension Status: Chronic Assessment and plan: SEE PLAN OF CARE LISTED BELOW Current Visit: Yes (3) Dyslipidemia Status: Chronic Assessment and plan: SEE PLAN OF CARE LISTED BELOW Current Visit: Yes (4) Allergy to contrast media (used for diagnostic x-rays) Status: Acute Current Visit: No (5) Cellulitis of both lower extremities Problem details: acute on chronic Status: Acute Current Visit: No (6) Obstructive sleep apnea Status: Chronic Assessment and plan: SEE PLAN OF CARE LISTED BELOW Current Visit: Yes (7) Overweight Status: Chronic Assessment and plan: SEE PLAN OF CARE LISTED BELOW Current Visit: No (8) Type II diabetes mellitus Status: Chronic Assessment and plan: SEE PLAN OF CARE LISTED BELOW Current Visit: No Qualifiers: Diabetes mellitus complication status: with skin complications Diabetes mellitus complication detail: with dermatitis Cardiology - PN: Subj Interval history: RECORDING STUDIO SET UP WORKER: DR. ABARCA WITH RECENT LHC BY DR. MAGALLANES SUMMARY: Mrs. Melara, 66WF, has a history of known, complicated coronary artery disease, hypertension, hyperlipidemia, diabetes mellitus. She is status post CABG in the 90s with KIRKPATRICK-LAD, SVG-RCA, and additional saphenous vein graft. Underwent LHC twice in the past month. She recently underwent cardiac catheterization November 10, [address] Abarca. She was found to have a patent KIRKPATRICK-LAD, chronic morongo RCA with a SVG to the RCA which was diffusely diseased but patent, as well as some morongo circumflex disease, most severe in the distal circumflex and a trifurcation point. Medical therapy was optimized, and the patient continued to have anginal symptoms. More recently, she underwent repeat catheterization with a failed attempted PCI to the circumflex artery by Dr. Magallanes in November 20, 2016. He was unable to wire the extent of the circumflex to proceed with intervention. She has been continued on medical therapy. Patient presented to ED of [facility] December 13, 2016 with continued complaints of chest discomfort concerning for angina. This has occurred primarily with mild to moderate exertion over the past 2 weeks. When she failed to respond to 3 nitroglycerin, she felt as if she should be evaluated and was brought to the ER. She has been housed in our telemetry unit overnight. She has chronic, stable dyspnea on exertion which is overall unchanged. Dr. Morillo has been consulted for possible redo ACB. She had a complicated postop course post CABG in the requiring tracheostomy. She spent 61 days in the ICU. She was previously followed by Dr. Ramos. DECEMBER 14, 2016: This morning, Ms. Melara tells me she had chest pain early this morning which woke her from her sleep. She required 2 nitroglycerin to relieve the discomfort is currently chest pain-free. She sitting up in the bedside chair. Dr. Morillo has been consulted for possible redo ACB but doubtful she is a good candidate for surgical revascularization. Dr. Bonilla saw patient over the weekend and recommended medical therapy and cardiac rehabilitation. However , all options are being considered at this time. Patient simply wants to feel better. I will order another set of cardiac biomarkers since the patient did have chest discomfort this morning. Glucose is uncontrolled and will verify that hospitalist is addressing. She is on maximum dose of Isosorbide Mononitrate (maximized dose started yesterday) and Ranexa. Continue aspirin and Plavix, Atorvastatin, Atenolol. Will further discuss with Dr. Goldberg and await additional recommendations. DECEMBER 15, 2016: Patient had one brief episode of chest pain over the past 24 hours. This occurred when she was walking from the bathroom to the chair. She is feeling better in general today. Dr. Morillo counseled patient with his opinion yesterday and feels as if she is a poor candidate for redo CABG. Dr. Goldberg has seen patient and feels that she may benefit from another heart catheterization with attempted PCI. Patient reports "I just cannot live this way. Something has to be done." In the past, [facility] has been available in [place], [place] however, I do not think we have this capability any longer. She is tolerating Corlanor without problems. Will further discuss with Dr. Goldberg and await additional recommendations. DECEMBER 16, 2016: This morning, Ms. Melara states that she has had no additional chest pain overnight. However, she simply just does not feel well today. No particular complaints other than constipation. She would like a suppository for that. Blood glucose levels are coming down as steroids are being tapered. Diabetic counseling ensues today. She is tolerating Corlanor without problems. Hopefully, she will be eligible for discharge in the morning. At that time, she will be given a follow-up appointment with Dr. Abarca approximately 1 week. Should she continue to do well without chest pain, suspect medical management will ensue. However, should she continue to have exertional angina she may be recommended to undergo repeat heart cath with attempted PCI locally or at another institution. She is agreeable to whatever the plan may be. She states she simply wants to feel better and feels as if she cannot continue to live the way she has been living of the past several weeks. Will further discuss with Dr. Goldberg and await additional recommendations. ASSESSMENT/PLAN: 1. CRESCENDO ANGINA - she has chronic severe two-vessel coronary artery disease that has failed medical therapy. She is on an appropriate regimen with Corlanor added Wednesday. No episodes of chest pain overnight. See discussion above. 2. Bilateral lower extremity edema - she has had a preserved systolic function , and her BNP is low, this is not CHF. It is likely related to the cellulitis in her lower extremities. She does have some decreased pulses in this area as well. Venous US BLE reveals no DVT. Continue with diuresis and elevation of legs. 3. Coronary artery disease - as above. 4. Hypertension - chronic, stable. 5. Diabetes mellitus - chronic, normally well-controlled glucose levels. Will verify she continues with sliding scale insulin protocol. Adjustments made to regimen yesterday for better blood pressure control while on steroids. Steroid dosing tapering. Education and counseling today. Exam (Progress Note) - Constitutional Vitals: Period Temp Pulse Resp BP Sys/Ospina Pulse Ox Last 24 Hr 96.5 F-98 F 59-71 16-22 107-126/54-63 91-99 Exam: General: [Appears well with no apparent distress.] [Pleasant and cooperative. ] [Appears comfortable.] HEENT: [PERRL, normocephalic, atraumatic. Mucous membranes moist. No jaundice noted. Conjunctiva moist and clear, sclerae anicteric] Neck: Difficult to assess for JVD due to habitus. No thyromegaly or lymphadenopathy noted. No carotid bruit appreciated Cardiac: [Regular rate and rhythm.] [No murmur rub or gallop.] Lungs: [Clear to auscultation without accessory muscle use to assist the respiratory pattern.] Not requiring oxygen Abdomen: Soft, bowel sounds normoactive. Nontender and nondistended. No abdominal bruit or thrill noted. No masses noted. Musculoskeletal: No fluid collection. Decreased range of motion is noted. Extremities: No clubbing, cyanosis noted. [1+ bilateral lower extremity edema noted.] Upper extremity pulses 2+. Decreased pulses bilateral lower extremities but Refill less than 3 seconds. Skin: Bilateral lower extremities reveal cellulitis type changes with the left lower extremity with a moderate amount of erythema. Several areas of Neuro: Awake, alert and oriented 3. Moves all extremities well without hemiparesis or paralysis. No essential tremor is appreciated. Result/EKG - Labs CBC & BMP: 12/16/16 05:35 12/16/16 05:35 Lab Results: I have reviewed the past 24 hour labs Labs: Laboratory Results - last 24 hr 12/15/16 12/15/16 12/15/16 11:55 16:24 19:23 WBC RBC Hgb Hct MCV MCH MCHC RDW Plt Count MPV Neut % (Auto) Lymph % (Auto) Lewis % (Auto) Eos % (Auto) Baso % (Auto) Neut # (Auto) Lymph # (Auto) Lewis # (Auto) Eos # (Auto) Baso # (Auto) Immature Gran % Nucleated RBC % Immature Gran # Nucleated RBCs # Immature Plt Fraction Sodium Potassium Chloride Carbon Dioxide Anion Gap BUN Creatinine GFR Calculation BUN/Creatinine Ratio Glucose POC Glucose 316 H 347 H 342 H Calculated Osmolality Calcium Magnesium 12/16/16 12/16/16 12/16/16 05:35 05:35 07:51 WBC 7.8 RBC 4.69 Hgb 13.4 Hct 41.4 MCV 88.3 MCH 29 MCHC 32.4 RDW 14.7 Plt Count 145 D MPV 11.5 Neut % (Auto) 80.2 H Lymph % (Auto) 12.8 L Lewis % (Auto) 6.0 Eos % (Auto) 0.0 Baso % (Auto) 0.1 Neut # (Auto) 6.3 Lymph # (Auto) 1.0 L Lewis # (Auto) 0.5 Eos # (Auto) 0.0 Baso # (Auto) 0.0 Immature Gran % 0.9 Nucleated RBC % 0.0 Immature Gran # 0.07 Nucleated RBCs # 0.00 Immature Plt Fraction 0.0 Sodium 136 Potassium 4.4 Chloride 102 Carbon Dioxide 27 Anion Gap 11.4 BUN 37 H Creatinine 1.20 H GFR Calculation 58 BUN/Creatinine Ratio 30.00 H Glucose 310 H POC Glucose 290 H Calculated Osmolality 292.0 Calcium 8.6 Magnesium 2.6 H - EKG EKG results: interpreted by me EKG shows: sinus rhythm Quality Measures - VTE Contraindication to Pharmacological VTE Prophylaxis: Already on Theraputic Agent , No Prophylaxis Needed Specialty Discharge - Follow Up or Referrals
[2016-12-16] MEDS ORDERED: BISACODYL 10 MG SUPP RECTAL ONE (10:53)
[2016-12-16] MEDS ORDERED: methylPREDNISolone SOD SUC 40 MG/1 ML VIAL IV SCH (17:00)
--- NOTE | 2016-12-16 21:39 | Internal Med Progress Note ---
Assessment and Plan (1) CAD (coronary artery disease) Status: Chronic Current Visit: Yes Qualifiers: Associated angina: with stable angina (2) COPD (chronic obstructive pulmonary disease) Status: Chronic Current Visit: Yes (3) Diabetes mellitus Status: Chronic Current Visit: Yes Qualifiers: Diabetes mellitus type: type 2 Diabetes mellitus complication status: with kidney complications Diabetes mellitus complication detail: with chronic kidney disease Diabetes mellitus termite technician insulin use: with termite technician use Chronic kidney disease stage: stage 3 (moderate) Qualified Code(s): E11.22 - Type 2 diabetes mellitus with diabetic chronic kidney disease; N18.3 - Chronic kidney disease, stage 3 (moderate); Z79.4 - manager intermediate (current) use of insulin (4) Progressive angina Status: Chronic Current Visit: Yes (5) Shortness of breath Problem details: acute on chronic Status: Chronic Current Visit: Yes (6) Obstructive sleep apnea Status: Chronic Current Visit: Yes Internal Medicine - PN: Subj Interval history: This is a 66 year old female with history of COPD, recurrent bronchitis, DULCE on CPAP, DM, peripheral neuropathy, CAD/CABG, coronary artery stent placement, dyslipidemia, recurrent cellulitis to lower extremities, hyperuricemia, renal insufficiency, who presented to ER with worsening angina. She has frequent anginal pain and is on Ranexa. She is under conservative managment for CAD. Glucose levels are uncontrolled Adjusting meds. She has been using 70/30 insulin mix at home, because she can't afford long acting insulin. However, dietary changes are needed. She reports losing about 10 pounds with attempts at weight loss. Will consult diabetic organic lab worker to help. Have decreased her daily calories to 1500. We have to get control of glucose levels and insulin dosing adjustments before she can be discharged. Improving. Tapering off Solumedrol, and glucose levels steadily improving. Have her on 1500 calorie diet last 2-3 days. If glucose levels reasonable tomorrow, will discharge to home on that dosing of insulin and she will follow up in clinic. She has been resistant to dietary changes at home over the last year making glucose levels difficult to control. She has not been inspired to attempt weight loss, but becoming more agreeable with the suggestion. Considering adding antidepressant Zoloft to help lift her mood. Exam (Progress Note) - Constitutional Vitals: Period Temp Pulse Resp BP Sys/Ospina Pulse Ox Last 24 Hr 96.5 F-97.1 F 57-69 15-20 117-125/54-63 92-98 Exam: General appearance: no acute distress - Respiratory Respiratory exam: Present: clear to auscultation bilaterally - Cardiovascular Cardiovascular exam: Present: regular rate and rhythm - GI/Abdominal GI/Abdominal exam: Present: soft. Absent: tenderness - Extremities Exam Extremities exam: Present: other (redness to both lower extremities). Absent: edema - Neurological Exam Neurological exam: Present: alert, oriented X3 - Psychiatric Psychiatric exam: Present: normal mood - Skin Skin exam: Present: warm, dry Results - Labs CBC & BMP: 12/16/16 05:35 12/16/16 05:35 Quality Measures - VTE Contraindication to Pharmacological VTE Prophylaxis: Already on Theraputic Agent , No Prophylaxis Needed Specialty Discharge - Follow Up or Referrals
[2016-12-16] MEDS ORDERED: DEXTROSE 50% 25 GM/50 ML SYRINGE IV PRN (22:30)
[2016-12-17] MEDS: ENOXAPARIN 100 MG/ML SYRINGE SUBCUT SCH ×2 (04:40→16:28)
[2016-12-17] MEDS: SODIUM CHLORIDE 0.45% 1,000 ML IV SCH ×2 (04:40→15:01)
[2016-12-17 05:47] LABS: Basophils % 0.1 % (0.0-0.8); Eosinophils # 0.1 10*3/uL (0.0-0.87); Eosinophils % 0.7 % (0.00-10.9); Hematocrit 42.9 VOL% (35.7-47.0); Hemoglobin 13.9 GM/DL (12.0-16.0); Immature Granulocytes % 1.4 %; Immature Granulocytes Absolute 0.11 #; Lymphocytes # 1.9 10*3/uL (1.4-4.0); Lymphocytes % 25.2 % (21.3-54.2); Mean Corpuscular HGB Conc 32.4 GM/DL (32-36); Mean Corpuscular Hemoglobin 29 PG (27-34); Mean Corpuscular Volume 88.6 FL (87-102); Mean Platelet Volume 11.1 FL (9.6-12.0); Monocytes # 0.8 10*3/uL (0.11-0.8); Monocytes % 10.1 % (1.7-12.7); Neutrophils # 4.8 10*3/uL (1.4-7.4); Neutrophils % 62.5 % (38.7-73.9); Platelet Count 138 T/CUMM (130-400); Red Blood Count 4.84 MC/CUMM (3.8-5.5); Red Cell Distribution Width 14.6 % (9.3-17.3); White Blood Count 7.7 T/CUMM (4-12)
[2016-12-17 06:06] LABS: Calcium 8.5 MG/DL (8.5-10.1); Magnesium 2.5 MG/DL (1.8-2.4); Osmolality,Calculated 283.5 MOS/KG (273-304)
[2016-12-17] MEDS: ALBUTEROL/IPRATROPIUM 3 ML NEB RESP TX SCH ×4 (07:50→20:56)
[2016-12-17] MEDS: BUDESONIDE 0.25 MG/2 ML NEB RESP TX SCH ×2 (07:50→20:56)
[2016-12-17] MEDS: INSULIN REGULAR 100 UNIT/ML SUBCUT SCH ×4 (09:13→22:11)
[2016-12-17] MEDS: INSULIN LISPRO 100 UNIT/ML SUBCUT SCH ×3 (09:13→16:28)
[2016-12-17] MEDS: PANTOPRAZOLE 40 MG TABLET PO SCH (09:15)
[2016-12-17] MEDS: CLOPIDOGREL 75 MG TABLET PO SCH (09:15)
[2016-12-17] MEDS: LORATADINE 10 MG TABLET PO SCH (09:15)
[2016-12-17] MEDS: GLIMEPIRIDE 4 MG TABLET PO SCH ×2 (09:15→16:27)
[2016-12-17] MEDS: ATENOLOL 25 MG TABLET PO SCH (09:16)
[2016-12-17] MEDS: ISOSORBIDE MONONITRATE 60 MG TABLET PO SCH (09:16)
[2016-12-17] MEDS: ATORVASTATIN 40 MG TABLET PO SCH (09:16)
[2016-12-17] MEDS: FUROSEMIDE 40 MG TABLET PO SCH ×2 (09:16→16:27)
[2016-12-17] MEDS: ALPRAZolam 0.5 MG TABLET PO SCH ×2 (09:16→22:04)
[2016-12-17] MEDS: ASPIRIN 325 MG TABLET PO SCH (09:16)
[2016-12-17] MEDS: RANOLAZINE 500 MG TABLET PO SCH ×2 (09:16→22:03)
[2016-12-17] MEDS: DOCUSATE SODIUM 100 MG CAPSULE PO SCH ×2 (09:16→22:04)
[2016-12-17] MEDS: IVABRADINE HCL 5 MG TABLET PO SCH ×2 (09:17→16:27)
[2016-12-17] MEDS: GABAPENTIN 300 MG CAPSULE PO SCH ×2 (09:17→22:03)
[2016-12-17] MEDS: MAGNESIUM OXIDE 400 MG TABLET PO SCH ×2 (09:17→22:04)
[2016-12-17] MEDS ORDERED: INSULIN GLARGINE 100 UNIT/ML SUBCUT SCH ×2 (09:19)
[2016-12-17] MEDS: BECLOMETHASONE 80 MCG/PUFF INHALER 8.7 GM INH SCH ×2 (09:23→22:04)
[2016-12-17] MEDS: INSULIN GLARGINE 100 UNIT/ML SUBCUT SCH (09:23)
--- NOTE | 2016-12-17 20:34 | Internal Med Progress Note ---
Assessment and Plan (1) CAD (coronary artery disease) Status: Chronic Current Visit: Yes Qualifiers: Associated angina: with stable angina (2) COPD (chronic obstructive pulmonary disease) Status: Chronic Current Visit: Yes (3) Diabetes mellitus Status: Chronic Current Visit: Yes Qualifiers: Diabetes mellitus type: type 2 Diabetes mellitus complication status: with kidney complications Diabetes mellitus complication detail: with chronic kidney disease Diabetes mellitus marine oil terminal superintendent insulin use: with skilled nursing use Chronic kidney disease stage: stage 3 (moderate) Qualified Code(s): E11.22 - Type 2 diabetes mellitus with diabetic chronic kidney disease; N18.3 - Chronic kidney disease, stage 3 (moderate); Z79.4 - laborer marine terminal (current) use of insulin (4) Progressive angina Status: Chronic Current Visit: Yes (5) Shortness of breath Problem details: acute on chronic Status: Chronic Current Visit: Yes (6) Obstructive sleep apnea Status: Chronic Current Visit: Yes Internal Medicine - PN: Subj Interval history: This is a 66 year old female with history of COPD, recurrent bronchitis, DULCE on CPAP, DM, peripheral neuropathy, CAD/CABG, coronary artery stent placement, dyslipidemia, recurrent cellulitis to lower extremities, hyperuricemia, renal insufficiency, who presented to ER with worsening angina. She has frequent anginal pain and is on Ranexa. She is under conservative managment for CAD. Glucose levels are uncontrolled Adjusting meds. She has been using 70/30 insulin mix at home, because she can't afford long acting insulin. However, dietary changes are needed. She reports losing about 10 pounds with attempts at weight loss. Will consult diabetic temporary help agency referral clerk to help. Have decreased her daily calories to 1500. We have to get control of glucose levels and insulin dosing adjustments before she can be discharged. Improving. Tapering off Solumedrol, and glucose levels steadily improving. Have her on 1500 calorie diet last 2-3 days. If glucose levels reasonable tomorrow, will discharge to home on that dosing of insulin and she will follow up in clinic. She has been resistant to dietary changes at home over the last year making glucose levels difficult to control. She has not been inspired to attempt weight loss, but becoming more agreeable with the suggestion. Considering adding antidepressant Zoloft to help lift her mood. She is doing better. She can go home in the morning with new dosing of insulin and a 1500 calorie daily diet. She will have a follow up with Dr. Morillo in clinic to further discuss procedure. Follow up with Dr. Latrell Gottlieb in clinic. Exam (Progress Note) - Constitutional Vitals: Period Temp Pulse Resp BP Sys/Ospina Pulse Ox Last 24 Hr 96.9 F-98.8 F 55-84 16-22 106-151/46-72 90-100 Exam: General appearance: no acute distress - Respiratory Respiratory exam: Present: clear to auscultation bilaterally - Cardiovascular Cardiovascular exam: Present: regular rate and rhythm - GI/Abdominal GI/Abdominal exam: Present: soft. Absent: tenderness - Extremities Exam Extremities exam: Present: other (redness to both lower extremities). Absent: edema - Neurological Exam Neurological exam: Present: alert, oriented X3 - Psychiatric Psychiatric exam: Present: normal mood - Skin Skin exam: Present: warm, dry Results - Labs CBC & BMP: 12/17/16 05:24 12/17/16 05:24 Quality Measures - VTE Contraindication to Pharmacological VTE Prophylaxis: Already on Theraputic Agent , No Prophylaxis Needed Specialty Discharge - Follow Up or Referrals Follow up with: Los Abarca MD [Physician] - 1 Week (with EKG)
--- NOTE | 2016-12-17 22:14 | Discharge Summary ---
Hospital Course - Hospital Course Hospital Course: This is a 66 year old female with history of COPD, recurrent bronchitis, DULCE on CPAP, DM, peripheral neuropathy, CAD/CABG, coronary artery stent placement, dyslipidemia, recurrent cellulitis to lower extremities, hyperuricemia, renal insufficiency, who presented to ER with worsening angina. She has frequent anginal pain and is on Ranexa. She is under conservative managment for CAD. Glucose levels are uncontrolled Adjusting meds. However, dietary changes are needed. She reports losing about 10 pounds with attempts at weight loss. Will consult diabetic training consultant to help. Have decreased her daily calories to 1500. She has been resistant to dietary changes at home over the last year making glucose levels difficult to control. Considering adding antidepressant Zoloft to help lift her mood. She is doing better. She can go home with new dosing of insulin and a 1500 calorie daily diet. She will have a follow up with Dr. Morillo in clinic to further discuss procedure to more aggressively treat CAD. Follow up with Dr. Latrell Gottlieb and Dr. Los Abarca in clinic. Diagnosis - Discharge Diagnosis (1) CAD (coronary artery disease) Status: Chronic (2) COPD (chronic obstructive pulmonary disease) Status: Chronic (3) Diabetes mellitus Status: Chronic (4) Progressive angina Status: Chronic (5) Shortness of breath Status: Chronic (6) Obstructive sleep apnea Status: Chronic Specialty Discharge - Follow Up or Referrals Follow up with: Los Abarca MD [Physician] - 1 Week (with EKG) Discharge Plan - Discharge Data Disposition: Disch To Home/Self Care Condition at Discharge: Stable Discharge Diet: low fat, low cholesterol Activity: increase activity as tolerated - Discharge Medications New Atenolol [Tenormin] 50 mg PO DAILY W/BREAKFAST #30 tablet Docusate Sodium Cap [Colace Cap] 100 mg PO BID capsule Glimepiride [Amaryl] 4 mg PO BID W/MEALS #60 tablet Insulin Glargine,Hum.rec.anlog [Lantus SoloStar] 35 unit SUBCUT DAILY #3 ml Ivabradine HCl [Corlanor] 5 mg PO BID W/MEALS #60 tablet Ranolazine [Ranexa] 1,000 mg PO BID #120 tablet Acetaminophen Tab [Tylenol Tab] 650 mg PO Q4H PRN tablet PRN Reason: Fever, Headache, Mild Pain Insulin Lispro [HumaLOG] 15 unit SUBCUT TID W/MEALS unit Continue Ipratropium/Albuterol Inhaler [Combivent Respimat Inhaler] 1 puff INH QID Atorvastatin [Lipitor] 40 mg PO DAILY Isosorbide Mononitrate [Imdur] 60 mg PO DAILY Gabapentin 300 mg PO BID Fluticasone 50 Mcg Nasal [place] [Flonase Nasal [place]] 1 spray BOTH NARES DAILY PRN PRN Reason: Allergy Symptoms ALPRAZolam [Alprazolam] 0.5 mg PO BID Furosemide Tab [Lasix Tab] 40 mg PO BID DIURETIC Nitroglycerin Sl Tab [Nitrostat] 0.4 mg SL Q5M PRN PRN Reason: Chest Pain Albuterol/Ipratropium Neb [Duoneb] 3 ml RESP TX TID PRN PRN Reason: Shortness Of Breath Beclomethasone 80 Mcg Inhaler [Qvar 80 Mcg] 80 mcg INH BID Famotidine 20 mg PO DAILY Empagliflozin [Jardiance] 10 mg PO DAILY Aspirin 325 mg PO DAILY Loratadine Tab [Claritin Tab] 10 mg PO DAILY Nitroglycerin Sl Tab [Nitrostat] 0.4 mg SL DAILY Magnesium Oxide 800 mg PO BID Clopidogrel [Plavix] 75 mg PO DAILY #30 tablet Discontinued Insulin Lispro [HumaLOG] 12 units SUBCUT TID W/MEALS amLODIPine [Norvasc] 5 mg PO DAILY Insulin NPH/Regular 70/30 [HumuLIN 70/30] 55 unit SUBCUT BID Ranolazine [Ranexa] 500 mg PO BID Atenolol 12.5 mg PO DAILY W/BREAKFAST #30 tablet - Follow Up or Referral Follow Up: Los Abarca MD [Physician] - 1 Week (with EKG) Luanne Gottlieb DO [Primary Care Provider] - Conrado Morillo MD [Physician] - - Forms/Instructions Instructions: Myocardial Infarction (GEN), Coronary Artery Disease (GEN), Heart Healthy Diet (GEN) Additional Discharge Instructions: Follow up with Dr. Morillo within 1-2 weeks in clinic to further discuss procedure available to her. Follow up with Dr. Latrell Gottlieb in clinic in 2 weeks. Follow up with Dr. Abarca within 3-4 weeks in clinic. Exam - Constitutional Vitals: Period Temp Pulse Resp BP Sys/Ospina Pulse Ox Last 24 Hr 96.9 F-98.8 F 55-84 16-22 106-151/46-72 90-100 Exam: General appearance: no acute distress - Respiratory Respiratory exam: Present: clear to auscultation bilaterally - Cardiovascular Cardiovascular exam: Present: regular rate and rhythm - GI/Abdominal GI/Abdominal exam: Present: soft. Absent: tenderness - Extremities Exam Extremities exam: Present: other (redness to both lower extremities). Absent: edema - Neurological Exam Neurological exam: Present: alert, oriented X3 - Psychiatric Psychiatric exam: Present: normal mood - Skin Skin exam: Present: warm, dry Discharge Results Labs on day of discharge: Labs from last 24 hours 12/17/16 12/17/16 12/17/16 16:05 11:31 09:21 WBC RBC Hgb Hct MCV MCH MCHC RDW Plt Count MPV Neut % (Auto) Lymph % (Auto) [place] % (Auto) Eos % (Auto) Baso % (Auto) Neut # (Auto) Lymph # (Auto) [place] # (Auto) Eos # (Auto) Baso # (Auto) Immature Gran % Nucleated RBC % Immature Gran # Nucleated RBCs # Immature Plt Fraction Sodium Potassium Chloride Carbon Dioxide Anion Gap BUN Creatinine GFR Calculation BUN/Creatinine Ratio Glucose POC Glucose 172 H 190 H 199 H Calculated Osmolality Calcium Magnesium 12/17/16 12/17/16 12/17/16 08:23 07:54 05:24 WBC RBC Hgb Hct MCV MCH MCHC RDW Plt Count MPV Neut % (Auto) Lymph % (Auto) [place] % (Auto) Eos % (Auto) Baso % (Auto) Neut # (Auto) Lymph # (Auto) [place] # (Auto) Eos # (Auto) Baso # (Auto) Immature Gran % Nucleated RBC % Immature Gran # Nucleated RBCs # Immature Plt Fraction Sodium 139 Potassium 4.0 Chloride 107 Carbon Dioxide 24 Anion Gap 12.0 BUN 34 H Creatinine 1.00 GFR Calculation 72 BUN/Creatinine Ratio 34.00 H Glucose 82 POC Glucose 79 53 L Calculated Osmolality 283.5 Calcium 8.5 Magnesium 2.5 H 12/17/16 05:24 WBC 7.7 RBC 4.84 Hgb 13.9 Hct 42.9 MCV 88.6 MCH 29 MCHC 32.4 RDW 14.6 Plt Count 138 MPV 11.1 Neut % (Auto) 62.5 Lymph % (Auto) 25.2 [place] % (Auto) 10.1 Eos % (Auto) 0.7 Baso % (Auto) 0.1 Neut # (Auto) 4.8 Lymph # (Auto) 1.9 [place] # (Auto) 0.8 Eos # (Auto) 0.1 Baso # (Auto) 0.0 Immature Gran % 1.4 Nucleated RBC % 0.0 Immature Gran # 0.11 Nucleated RBCs # 0.00 Immature Plt Fraction 0.0 Sodium Potassium Chloride Carbon Dioxide Anion Gap BUN Creatinine GFR Calculation BUN/Creatinine Ratio Glucose POC Glucose Calculated Osmolality Calcium Magnesium DS: Provider Date of admission: 12/13/16 02:50 Primary care physician: Luanne Gottlieb DO Attending physician on admission: Chi Tineo MD Consults: 12/13/16 02:50 Consult to Physician [CONS] Routine Comment: ANGINA/NSTEMI Consulting Provider: Aarti Bonilla Consulting Provider Notified: No When should Consulting Provider be notified: In am 12/13/16 16:49 Consult to Physician [CONS] Routine Comment: CAD, refractory angina, failed PCI, hx of CABG Consulting Provider: Conrado Morillo When should Consulting Provider be notified: In am Consult to Specialist Group: Cardiothoracic Surgery Person Notified: DEQUAN Date Notified: 12/14/16 Time Notified: 07:45 12/14/16 06:36 Consult to Cardiac Rehabilitation [CONS] Routine Reason for Cardiac Rehabilitation: Risk Factor Modification 12/14/16 22:03 Consult to [facility], Educator [CONS] Routine Reason for Trap Puller: Evaluate and Recommend Re-education Consult Comment: have discontinued her 70/30 mix Consult to Dietitian [CONS] Routine Reason for Dietitian: Diet Recommendations Consult Comment: diabetic diet and weight loss plan Discharging clinician: Luanne Gottlieb DO Expected date of discharge: 12/18/16
[2016-12-18] MEDS: SODIUM CHLORIDE 0.45% 1,000 ML IV SCH (01:18)
[2016-12-18] MEDS: ENOXAPARIN 100 MG/ML SYRINGE SUBCUT SCH (05:15)
[2016-12-18] MEDS: ALBUTEROL/IPRATROPIUM 3 ML NEB RESP TX SCH (07:00)
[2016-12-18] MEDS: BUDESONIDE 0.25 MG/2 ML NEB RESP TX SCH (07:10)
[2016-12-18 08:27] VITALS: BP 114/55
[2016-12-18] MEDS: INSULIN REGULAR 100 UNIT/ML SUBCUT SCH (08:33)
[2016-12-18] MEDS: ISOSORBIDE MONONITRATE 60 MG TABLET PO SCH (09:13)
[2016-12-18] MEDS: IVABRADINE HCL 5 MG TABLET PO SCH (09:13)
[2016-12-18] MEDS: MAGNESIUM OXIDE 400 MG TABLET PO SCH (09:14)
[2016-12-18] MEDS: LORATADINE 10 MG TABLET PO SCH (09:14)
[2016-12-18] MEDS: ALPRAZolam 0.5 MG TABLET PO SCH (09:14)
[2016-12-18] MEDS: CLOPIDOGREL 75 MG TABLET PO SCH (09:14)
[2016-12-18] MEDS: ATORVASTATIN 40 MG TABLET PO SCH (09:14)
[2016-12-18] MEDS: DOCUSATE SODIUM 100 MG CAPSULE PO SCH (09:14)
[2016-12-18] MEDS: GABAPENTIN 300 MG CAPSULE PO SCH (09:14)
[2016-12-18] MEDS: GLIMEPIRIDE 4 MG TABLET PO SCH (09:14)
[2016-12-18] MEDS: RANOLAZINE 500 MG TABLET PO SCH (09:14)
[2016-12-18] MEDS: ASPIRIN 325 MG TABLET PO SCH (09:14)
[2016-12-18] MEDS: PANTOPRAZOLE 40 MG TABLET PO SCH (09:14)
[2016-12-18] MEDS: ATENOLOL 25 MG TABLET PO SCH (09:14)
[2016-12-18] MEDS: FUROSEMIDE 40 MG TABLET PO SCH (09:15)
[2016-12-18] MEDS: INSULIN LISPRO 100 UNIT/ML SUBCUT SCH (09:17)
[2016-12-18] MEDS: BECLOMETHASONE 80 MCG/PUFF INHALER 8.7 GM INH SCH (09:18)
== END 2016-12-18 10:36 | disposition home or self-care (01) | DRG 198 ==
LOC: N.ED 23:44 → N.EDINP 12-13 02:50 → SUATTDRO 12-13 02:50 → N.TELEN 12-13 03:29
PROVIDERS: ADMIT Internal Medicine; ATTEND Internal Medicine

== ENCOUNTER 2019-01-27 21:08 | Inpatient (IN) ==
[2019-01-27 21:40] LABS: Basophils % 0.4 % (0.0-0.8); Eosinophils # 0.3 10*3/uL (0.0-0.87); Eosinophils % 3.8 % (0.00-10.9); Hematocrit 44.4 VOL% (35.7-47.0); Hemoglobin 14.1 GM/DL (12.0-16.0); Immature Granulocytes % 0.4 %; Immature Granulocytes Absolute 0.03 #; Lymphocytes # 1.4 10*3/uL (1.4-4.0); Mean Corpuscular HGB Conc 31.8 GM/DL (32-36); Mean Corpuscular Volume 90.6 FL (87-102); Mean Platelet Volume 10.7 FL (9.6-12.0); Monocytes % 7.5 % (1.7-12.7); Neutrophils % 68.9 % (38.7-73.9); Platelet Count 188 T/CUMM (130-400); Red Cell Distribution Width 13.9 % (9.3-17.3); White Blood Count 7.2 T/CUMM (4-12)
[2019-01-27 21:46] LABS: PT Patient Result 10.4 SECS (9.6-12.2)
[2019-01-27 21:54] LABS: ABG Base Excess 6.4 MMOL/L (-2.5-2.5); ABG Oxygen Saturation 88.6 % (95-100); ABG PCO2 44.8 MM HG (35-48); ABG PH 7.452 (7.35-7.45); ABG PO2 56.6 MM HG (80-95); ABG TCO2 26.9 MMOL/L (23-27)
[2019-01-27 21:59] LABS: Albumin 3.7 G/DL (3.4-5.0); Bilirubin,Total 1.2 MG/DL (0.2-1.0); Osmolality,Calculated 283.4 MOS/KG (273-304); Total Protein 7.4 G/DL (6.4-8.3)
[2019-01-27] MEDS ORDERED: POTASSIUM CHLORIDE 20 MEQ/15 ML UDCUP PO ONE (22:06)
[2019-01-27] MEDS ORDERED: FUROSEMIDE 100 MG/10 ML VIAL IV STA (23:01)
[2019-01-27] MEDS ORDERED: ACETAMINOPHEN 325 MG TABLET PO PRN (23:18)
[2019-01-27] MEDS ORDERED: ALBUTEROL/IPRATROPIUM 3 ML NEB RESP TX SCH (23:30)
[2019-01-28] MEDS: FUROSEMIDE 40 MG/4 ML VIAL IV SCH ×3 (00:29→23:25)
[2019-01-28] MEDS: ONDANSETRON 4 MG/2 ML VIAL IV PRN ×2 (00:45→19:49)
[2019-01-28] MEDS: ALBUTEROL/IPRATROPIUM 3 ML NEB RESP TX SCH ×5 (00:57→18:50)
[2019-01-28] MEDS: ACETAMINOPHEN 325 MG TABLET PO SCH ×4 (02:31→19:52)
[2019-01-28 05:09] LABS: Basophils % 0.2 % (0.0-0.8); Eosinophils # 0.2 10*3/uL (0.0-0.87); Eosinophils % 3.9 % (0.00-10.9); Hematocrit 43.7 VOL% (35.7-47.0); Hemoglobin 13.5 GM/DL (12.0-16.0); Immature Granulocytes % 0.5 %; Immature Granulocytes Absolute 0.03 #; Lymphocytes # 1.1 10*3/uL (1.4-4.0); Lymphocytes % 17.3 % (21.3-54.2); Mean Corpuscular HGB Conc 30.9 GM/DL (32-36); Mean Corpuscular Volume 91.4 FL (87-102); Mean Platelet Volume 11.1 FL (9.6-12.0); Monocytes % 7.6 % (1.7-12.7); Neutrophils % 70.5 % (38.7-73.9); Platelet Count 180 T/CUMM (130-400); Red Blood Count 4.78 MC/CUMM (3.8-5.5); White Blood Count 6.2 T/CUMM (4-12)
[2019-01-28 05:22] LABS: Albumin 3.3 G/DL (3.4-5.0); Bilirubin,Total 1.9 MG/DL (0.2-1.0); Calcium 8.4 MG/DL (8.5-10.1); Osmolality,Calculated 284.4 MOS/KG (273-304); Total Protein 6.9 G/DL (6.4-8.3)
[2019-01-28] MEDS ORDERED: PANTOPRAZOLE 40 MG TABLET PO SCH (09:00)
[2019-01-28] MEDS ORDERED: ALBUTEROL/IPRATROPIUM 3 ML NEB RESP TX PRN (09:31)
[2019-01-28] MEDS ORDERED: FLUTICASONE 50 MCG NASAL SPRAY 16 GM BOTTLE BOTH NARES PRN (09:31)
[2019-01-28] MEDS ORDERED: GLUCAGON 1 MG VIAL IM PRN (09:41)
[2019-01-28] MEDS ORDERED: DEXTROSE 50% 25 GM/50 ML VIAL IV PRN (09:41)
[2019-01-28] MEDS: ISOSORBIDE MONONITRATE 60 MG TABLET PO SCH (11:13)
[2019-01-28] MEDS: LORATADINE 10 MG TABLET PO SCH (11:13)
[2019-01-28] MEDS: INSULIN GLARGINE 100 UNIT/ML SUBCUT SCH (11:13)
[2019-01-28] MEDS: INSULIN LISPRO 100 UNIT/ML SUBCUT SCH ×2 (11:14→18:03)
[2019-01-28] MEDS: IVABRADINE HCL 5 MG TABLET PO SCH ×2 (18:04→18:11)
[2019-01-28] MEDS: DOCUSATE SODIUM 100 MG CAPSULE PO SCH (21:20)
[2019-01-28] MEDS: atenoloL 25 MG TABLET PO SCH (21:20)
[2019-01-28] MEDS: DOXYCYCLINE HYCLATE 100 MG CAPSULE PO SCH (21:21)
[2019-01-28] MEDS: GABAPENTIN 300 MG CAPSULE PO SCH (21:21)
[2019-01-28] MEDS: ALPRAZolam 0.5 MG TABLET PO SCH (21:21)
[2019-01-28] MEDS: BECLOMETHASONE 80 MCG/PUFF INHALER 8.7 GM INH SCH (21:42)
[2019-01-29] MEDS: ACETAMINOPHEN 325 MG TABLET PO SCH ×3 (01:15→12:25)
[2019-01-29] MEDS: ALBUTEROL/IPRATROPIUM 3 ML NEB RESP TX SCH ×4 (07:00→19:54)
[2019-01-29] MEDS: amLODIPine 5 MG TABLET PO SCH (08:04)
[2019-01-29] MEDS: ISOSORBIDE MONONITRATE 60 MG TABLET PO SCH (08:04)
[2019-01-29] MEDS: LORATADINE 10 MG TABLET PO SCH (08:04)
[2019-01-29] MEDS: GABAPENTIN 300 MG CAPSULE PO SCH ×2 (08:04→22:19)
[2019-01-29] MEDS: DOCUSATE SODIUM 100 MG CAPSULE PO SCH ×2 (08:04→22:19)
[2019-01-29] MEDS: ATORVASTATIN 40 MG TABLET PO SCH (08:04)
[2019-01-29] MEDS: ASPIRIN 325 MG TABLET PO SCH (08:04)
[2019-01-29] MEDS: ALPRAZolam 0.5 MG TABLET PO SCH ×2 (08:04→22:19)
[2019-01-29] MEDS: FAMOTIDINE 20 MG TABLET PO SCH (08:05)
[2019-01-29] MEDS: atenoloL 25 MG TABLET PO SCH ×2 (08:05→22:19)
[2019-01-29] MEDS: DOXYCYCLINE HYCLATE 100 MG CAPSULE PO SCH ×2 (08:20→22:23)
[2019-01-29] MEDS: INSULIN GLARGINE 100 UNIT/ML SUBCUT SCH (08:20)
[2019-01-29] MEDS: INSULIN LISPRO 100 UNIT/ML SUBCUT SCH ×3 (08:21→18:30)
[2019-01-29] MEDS: BECLOMETHASONE 80 MCG/PUFF INHALER 8.7 GM INH SCH ×2 (08:21→22:19)
[2019-01-29] MEDS ORDERED: CLOPIDOGREL 75 MG TABLET PO SCH (09:00)
[2019-01-29 09:31] LABS: Basophils % 0.3 % (0.0-0.8); Eosinophils # 0.2 10*3/uL (0.0-0.87); Eosinophils % 3.2 % (0.00-10.9); Hematocrit 43.2 VOL% (35.7-47.0); Hemoglobin 13.4 GM/DL (12.0-16.0); Immature Granulocytes % 0.5 %; Immature Granulocytes Absolute 0.03 #; Lymphocytes # 0.7 10*3/uL (1.4-4.0); Lymphocytes % 11.3 % (21.3-54.2); Mean Corpuscular Volume 91.7 FL (87-102); Mean Platelet Volume 10.8 FL (9.6-12.0); Monocytes % 5.3 % (1.7-12.7); Neutrophils % 79.4 % (38.7-73.9); Platelet Count 177 T/CUMM (130-400); Red Blood Count 4.71 MC/CUMM (3.8-5.5); Red Cell Distribution Width 13.9 % (9.3-17.3); White Blood Count 6.5 T/CUMM (4-12)
[2019-01-29 09:57] LABS: Calcium 8.3 MG/DL (8.5-10.1); Osmolality,Calculated 288.4 MOS/KG (273-304)
[2019-01-29] MEDS: IVABRADINE HCL 5 MG TABLET PO SCH ×2 (12:11→16:33)
[2019-01-29] MEDS: FUROSEMIDE 40 MG/4 ML VIAL IV SCH ×2 (12:12→23:56)
[2019-01-29] MEDS: CLOPIDOGREL 75 MG TABLET PO SCH (12:12)
[2019-01-30 05:05] LABS: Basophils % 0.2 % (0.0-0.8); Eosinophils # 0.3 10*3/uL (0.0-0.87); Eosinophils % 5.9 % (0.00-10.9); Hematocrit 46.4 VOL% (35.7-47.0); Hemoglobin 14.4 GM/DL (12.0-16.0); Immature Granulocytes % 0.4 %; Immature Granulocytes Absolute 0.02 #; Lymphocytes # 1.1 10*3/uL (1.4-4.0); Mean Corpuscular Volume 92.8 FL (87-102); Mean Platelet Volume 10.6 FL (9.6-12.0); Monocytes % 8.8 % (1.7-12.7); Neutrophils % 64.7 % (38.7-73.9); Platelet Count 190 T/CUMM (130-400); White Blood Count 5.5 T/CUMM (4-12)
[2019-01-30 05:34] LABS: Calcium 8.7 MG/DL (8.5-10.1); Osmolality,Calculated 283.3 MOS/KG (273-304)
[2019-01-30] MEDS: ACETAMINOPHEN 325 MG TABLET PO SCH ×5 (05:44→20:58)
[2019-01-30] MEDS: ALBUTEROL/IPRATROPIUM 3 ML NEB RESP TX SCH ×4 (07:11→18:56)
[2019-01-30] MEDS: ATORVASTATIN 40 MG TABLET PO SCH (09:16)
[2019-01-30] MEDS: ALPRAZolam 0.5 MG TABLET PO SCH ×2 (09:17→20:59)
[2019-01-30] MEDS: IVABRADINE HCL 5 MG TABLET PO SCH ×2 (09:17→17:56)
[2019-01-30] MEDS: atenoloL 25 MG TABLET PO SCH ×2 (09:17→20:59)
[2019-01-30] MEDS: FAMOTIDINE 20 MG TABLET PO SCH (09:17)
[2019-01-30] MEDS: GABAPENTIN 300 MG CAPSULE PO SCH ×2 (09:17→20:59)
[2019-01-30] MEDS: ISOSORBIDE MONONITRATE 60 MG TABLET PO SCH (09:17)
[2019-01-30] MEDS: DOCUSATE SODIUM 100 MG CAPSULE PO SCH ×2 (09:17→20:59)
[2019-01-30] MEDS: ASPIRIN 325 MG TABLET PO SCH (09:17)
[2019-01-30] MEDS: DOXYCYCLINE HYCLATE 100 MG CAPSULE PO SCH (09:17)
[2019-01-30] MEDS: amLODIPine 5 MG TABLET PO SCH (09:17)
[2019-01-30] MEDS: LORATADINE 10 MG TABLET PO SCH (09:17)
[2019-01-30] MEDS: INSULIN LISPRO 100 UNIT/ML SUBCUT SCH ×3 (09:18→17:56)
[2019-01-30] MEDS: INSULIN GLARGINE 100 UNIT/ML SUBCUT SCH (09:18)
[2019-01-30] MEDS: CLOPIDOGREL 75 MG TABLET PO SCH (09:18)
[2019-01-30] MEDS: BECLOMETHASONE 80 MCG/PUFF INHALER 8.7 GM INH SCH ×2 (09:21→20:59)
[2019-01-30] MEDS: FUROSEMIDE 40 MG/4 ML VIAL IV SCH (12:17)
[2019-01-30] MEDS ORDERED: GLUCAGON 1 MG VIAL IM PRN (14:14)
[2019-01-30] MEDS ORDERED: DEXTROSE 10% 25 GM/250 ML BAG IV PRN (14:14)
[2019-01-30] MEDS ORDERED: methylPREDNISolone SOD SUC 40 MG/1 ML VIAL IV SCH ×2 (14:30→15:00)
[2019-01-30] MEDS: AZITHROMYCIN INJ 250 MG in SODIUM CHLORIDE 0.9% 250 ML IV SCH (16:00)
[2019-01-30] MEDS: INSULIN REGULAR 100 UNIT/ML SUBCUT SCH ×2 (16:39→20:58)
[2019-01-30] MEDS: cefTRIAXone 1,000 MG in SYRINGE 1 EACH IV SCH (17:56)
[2019-01-30] MEDS: BUDESONIDE 0.25 MG/2 ML NEB RESP TX SCH (18:56)
[2019-01-31] MEDS: methylPREDNISolone SOD SUC 40 MG/1 ML VIAL IV SCH ×3 (00:07→15:27)
[2019-01-31] MEDS: FUROSEMIDE 40 MG/4 ML VIAL IV SCH ×2 (00:08→15:26)
[2019-01-31] MEDS: ACETAMINOPHEN 325 MG TABLET PO SCH ×4 (01:53→23:32)
[2019-01-31 04:20] LABS: ABG Base Excess 1.5 MMOL/L (-2.5-2.5); ABG HCO3 25.6 MMOL/L (20-26); ABG Oxygen Saturation 93.4 % (95-100); ABG PCO2 51.9 MM HG (35-48); ABG PH 7.345 (7.35-7.45); ABG PO2 73.1 MM HG (80-95); ABG TCO2 24.8 MMOL/L (23-27); Allen Test Positive; Pt O2 Delivery Device CPAP
[2019-01-31 04:49] LABS: Basophils % 0.3 % (0.0-0.8); Eosinophils % 0.3 % (0.00-10.9); Hematocrit 44.8 VOL% (35.7-47.0); Immature Granulocytes % 0.8 %; Immature Granulocytes Absolute 0.03 #; Lymphocytes # 0.5 10*3/uL (1.4-4.0); Lymphocytes % 13.3 % (21.3-54.2); Mean Corpuscular HGB Conc 31.3 GM/DL (32-36); Mean Corpuscular Volume 91.1 FL (87-102); Mean Platelet Volume 11.1 FL (9.6-12.0); Monocytes % 1.6 % (1.7-12.7); Neutrophils % 83.7 % (38.7-73.9); Platelet Count 177 T/CUMM (130-400); Red Blood Count 4.92 MC/CUMM (3.8-5.5); Red Cell Distribution Width 13.6 % (9.3-17.3); White Blood Count 3.8 T/CUMM (4-12)
[2019-01-31 05:04] LABS: Albumin 3.5 G/DL (3.4-5.0); Bilirubin,Total 1.4 MG/DL (0.2-1.0); Calcium 8.5 MG/DL (8.5-10.1); Osmolality,Calculated 296.4 MOS/KG (273-304); Total Protein 7.4 G/DL (6.4-8.3)
[2019-01-31] MEDS: BUDESONIDE 0.25 MG/2 ML NEB RESP TX SCH ×2 (07:48→21:00)
[2019-01-31] MEDS: ALBUTEROL/IPRATROPIUM 3 ML NEB RESP TX SCH ×4 (07:48→21:00)
[2019-01-31] MEDS: GABAPENTIN 300 MG CAPSULE PO SCH ×2 (08:24→20:32)
[2019-01-31] MEDS: ATORVASTATIN 40 MG TABLET PO SCH (08:25)
[2019-01-31] MEDS: ALPRAZolam 0.5 MG TABLET PO SCH ×2 (08:25→20:32)
[2019-01-31] MEDS: IVABRADINE HCL 5 MG TABLET PO SCH ×2 (08:25→18:44)
[2019-01-31] MEDS: FAMOTIDINE 20 MG TABLET PO SCH (08:25)
[2019-01-31] MEDS: LORATADINE 10 MG TABLET PO SCH (08:25)
[2019-01-31] MEDS: DOCUSATE SODIUM 100 MG CAPSULE PO SCH ×2 (08:25→20:32)
[2019-01-31] MEDS: ISOSORBIDE MONONITRATE 60 MG TABLET PO SCH (08:25)
[2019-01-31] MEDS: CLOPIDOGREL 75 MG TABLET PO SCH (08:25)
[2019-01-31] MEDS: ASPIRIN 325 MG TABLET PO SCH (08:25)
[2019-01-31] MEDS: INSULIN GLARGINE 100 UNIT/ML SUBCUT SCH (08:29)
[2019-01-31] MEDS: INSULIN LISPRO 100 UNIT/ML SUBCUT SCH ×3 (08:32→16:18)
[2019-01-31] MEDS: INSULIN REGULAR 100 UNIT/ML SUBCUT SCH ×4 (08:32→20:32)
[2019-01-31] MEDS: atenoloL 25 MG TABLET PO SCH ×2 (09:34→20:32)
[2019-01-31] MEDS: BECLOMETHASONE 80 MCG/PUFF INHALER 8.7 GM INH SCH ×2 (09:34→20:33)
[2019-01-31] MEDS: AZITHROMYCIN INJ 250 MG in SODIUM CHLORIDE 0.9% 250 ML IV SCH (15:27)
[2019-01-31] MEDS: cefTRIAXone 1,000 MG in SYRINGE 1 EACH IV SCH (17:34)
[2019-01-31] MEDS: BISACODYL 5 MG TABLET PO PRN (17:35)
[2019-01-31] MEDS: GLIMEPIRIDE 2 MG TABLET PO SCH ×2 (17:42→20:32)
[2019-02-01] MEDS: ACETAMINOPHEN 325 MG TABLET PO SCH ×3 (00:41→12:35)
[2019-02-01] MEDS: methylPREDNISolone SOD SUC 40 MG/1 ML VIAL IV SCH ×4 (00:42→19:37)
[2019-02-01 05:10] LABS: Calcium 8.8 MG/DL (8.5-10.1); Osmolality,Calculated 298.4 MOS/KG (273-304)
[2019-02-01] MEDS: ALBUTEROL/IPRATROPIUM 3 ML NEB RESP TX SCH ×4 (07:22→20:23)
[2019-02-01] MEDS: BUDESONIDE 0.25 MG/2 ML NEB RESP TX SCH ×2 (07:22→20:23)
[2019-02-01] MEDS: DOCUSATE SODIUM 100 MG CAPSULE PO SCH ×2 (09:30→23:16)
[2019-02-01] MEDS: GABAPENTIN 300 MG CAPSULE PO SCH ×2 (09:30→23:16)
[2019-02-01] MEDS: FAMOTIDINE 20 MG TABLET PO SCH (09:30)
[2019-02-01] MEDS: ISOSORBIDE MONONITRATE 60 MG TABLET PO SCH (09:30)
[2019-02-01] MEDS: LORATADINE 10 MG TABLET PO SCH (09:31)
[2019-02-01] MEDS: atenoloL 25 MG TABLET PO SCH ×2 (09:31→23:21)
[2019-02-01] MEDS: GLIMEPIRIDE 2 MG TABLET PO SCH ×2 (09:31→23:15)
[2019-02-01] MEDS: CLOPIDOGREL 75 MG TABLET PO SCH (09:31)
[2019-02-01] MEDS: ALPRAZolam 0.5 MG TABLET PO SCH ×2 (09:31→23:15)
[2019-02-01] MEDS: ASPIRIN 325 MG TABLET PO SCH (09:31)
[2019-02-01] MEDS: ATORVASTATIN 40 MG TABLET PO SCH (09:31)
[2019-02-01] MEDS: FUROSEMIDE 40 MG/4 ML VIAL IV SCH ×2 (09:33→18:24)
[2019-02-01] MEDS: INSULIN LISPRO 100 UNIT/ML SUBCUT SCH ×3 (09:34→18:22)
[2019-02-01] MEDS: INSULIN GLARGINE 100 UNIT/ML SUBCUT SCH (09:35)
[2019-02-01] MEDS: IVABRADINE HCL 5 MG TABLET PO SCH ×2 (09:46→18:40)
[2019-02-01] MEDS: INSULIN REGULAR 100 UNIT/ML SUBCUT SCH ×4 (09:49→23:16)
[2019-02-01] MEDS: BISACODYL 5 MG TABLET PO PRN (10:02)
[2019-02-01] MEDS: BECLOMETHASONE 80 MCG/PUFF INHALER 8.7 GM INH SCH ×2 (10:02→23:17)
[2019-02-01] MEDS: cefTRIAXone 1,000 MG in SYRINGE 1 EACH IV SCH (18:23)
[2019-02-01] MEDS: AZITHROMYCIN INJ 250 MG in SODIUM CHLORIDE 0.9% 250 ML IV SCH (18:56)
[2019-02-02] MEDS: methylPREDNISolone SOD SUC 40 MG/1 ML VIAL IV SCH ×3 (01:16→18:02)
[2019-02-02 04:03] LABS: Calcium 8.7 MG/DL (8.5-10.1)
[2019-02-02] MEDS: ACETAMINOPHEN 325 MG TABLET PO SCH ×4 (05:09→13:08)
[2019-02-02] MEDS: ALBUTEROL/IPRATROPIUM 3 ML NEB RESP TX SCH ×4 (07:50→20:13)
[2019-02-02] MEDS: BUDESONIDE 0.25 MG/2 ML NEB RESP TX SCH ×2 (07:51→20:13)
[2019-02-02] MEDS ORDERED: POTASSIUM CHLORIDE 10 MEQ TABLET PO SCH (09:00)
[2019-02-02] MEDS: LORATADINE 10 MG TABLET PO SCH (10:35)
[2019-02-02] MEDS: ATORVASTATIN 40 MG TABLET PO SCH (10:35)
[2019-02-02] MEDS: CLOPIDOGREL 75 MG TABLET PO SCH (10:35)
[2019-02-02] MEDS: atenoloL 25 MG TABLET PO SCH (10:35)
[2019-02-02] MEDS: ASPIRIN 325 MG TABLET PO SCH (10:35)
[2019-02-02] MEDS: FAMOTIDINE 20 MG TABLET PO SCH (10:36)
[2019-02-02] MEDS: GLIMEPIRIDE 2 MG TABLET PO SCH (10:36)
[2019-02-02] MEDS: ALPRAZolam 0.5 MG TABLET PO SCH (10:36)
[2019-02-02] MEDS: ISOSORBIDE MONONITRATE 60 MG TABLET PO SCH (10:36)
[2019-02-02] MEDS: GABAPENTIN 300 MG CAPSULE PO SCH (10:36)
[2019-02-02] MEDS: INSULIN LISPRO 100 UNIT/ML SUBCUT SCH ×3 (10:36→18:03)
[2019-02-02] MEDS: INSULIN GLARGINE 100 UNIT/ML SUBCUT SCH (10:37)
[2019-02-02] MEDS: INSULIN REGULAR 100 UNIT/ML SUBCUT SCH ×3 (10:37→18:04)
[2019-02-02] MEDS: FUROSEMIDE 40 MG/4 ML VIAL IV SCH ×2 (10:38→15:56)
[2019-02-02] MEDS: DOCUSATE SODIUM 100 MG CAPSULE PO SCH (10:38)
[2019-02-02] MEDS: BECLOMETHASONE 80 MCG/PUFF INHALER 8.7 GM INH SCH (10:39)
[2019-02-02] MEDS: IVABRADINE HCL 5 MG TABLET PO SCH ×2 (10:57→18:06)
[2019-02-02] MEDS: AZITHROMYCIN INJ 250 MG in SODIUM CHLORIDE 0.9% 250 ML IV SCH (15:55)
[2019-02-02] MEDS: cefTRIAXone 1,000 MG in SYRINGE 1 EACH IV SCH (18:01)
[2019-02-02 23:42] VITALS: BP 132/71
== END 2019-02-02 20:51 | disposition home health service (06) | DRG 140 ==
LOC: N.ED 21:08 → N.EDINP 23:15 → N.TELES 23:37
PROVIDERS: ADMIT Internal Medicine; ATTEND Internal Medicine